=== PATIENT | female | born 1985 | race Caucasian/White ===

== ENCOUNTER 2016-12-09 15:52 | Outpatient (CLI) | payer BC ==
[2016-12-09 16:39] LABS: APPEARANCE,URINE CLEAR; BILIRUBIN,URINE NEGATIVE (NEGATIVE); GLUCOSE, URINE NEGATIVE (NEGATIVE); KETONES,URINE NEGATIVE (NEGATIVE); LEUKOCYTE ESTERASE,URINE NEGATIVE (NEGATIVE); NITRITE,URINE NEGATIVE (NEGATIVE); PROTEIN,URINE NEGATIVE (NEGATIVE); URINE SPECIFIC GRAVITY 1.003; UROBILINOGEN,URINE NEGATIVE mg/dL (<2.0)
[2016-12-09 16:56] LABS: URINE BARBITURATES SCREEN NEGATIVE; URINE METHADONE SCREEN NEGATIVE; URINE OPIATES LOW NEGATIVE; URINE PHENCYCLIDINE SCREEN NEGATIVE
--- NOTE | 2016-12-09 18:01 | L&D Current Admission ---
Current Admit Datetime Report Generated by CPN: 12/09/2016 18:00 ADMISSION INFORMATION Chief Complaint: Vaginal Bleeding (12/09/2016 16:40:Yarelis Glass RN)
--- NOTE | 2016-12-09 18:01 | L&D General Admission ---
General Admit Datetime Report Generated by CPN: 12/09/2016 18:00 INFORMATION Patient Age: 31 (12/09/2016 16:12:QS system process) EDC: 02/18/2017 00:00 (12/09/2016 16:14:Luz Maddox RN) : 1 (12/09/2016 16:14:Yarelis Glass RN) Para: 1 (12/09/2016 16:14:Yarelis Glass RN) Spontaneous Abortions: 0 (12/09/2016 16:14:Yarelis Glass RN) Induced Abortions: 0 (12/09/2016 16:14:Yarelis Glass RN) Livin (12/09/2016 16:14:Yarelis Glass RN) Baby, Number in Womb: 1 (12/09/2016 16:14:Yarelis Glass RN) CARE [facility] Probate [facility] (12/09/2016 16:14:Luz Maddox RN) Adequate Care: Yes (12/09/2016 16:14:Yarelis Glass RN) Prepregnancy Weight (lb): 162 (12/09/2016 16:14:Yarelis Glass RN) Prepregnancy Weight (kg): 73.6 (12/09/2016 16:14:QS system process) Height (in): 66 (12/09/2016 16:40:QS system process) ALLERGIES Medication Allergy: No (12/09/2016 16:14:Yarelis Glass RN) Medication Allergies: No Known Allergies (12/09/2016) (12/09/2016 16:39:QS system process) Latex Allergy: No Latex Allergies (12/09/2016 16:14:Yarelis Glass RN) Food Allergies: denies (12/09/2016 16:14:Yarelis Glass RN) Environmental Allergies: denies (12/09/2016 16:14:Yarelis Glass RN) COMMUNICATION Primary Language: Lithuanian (12/09/2016 16:14:Luz Maddox RN) Medical Tx Preferred Language: Lithuanian (12/09/2016 16:14:Luz Maddox RN) Communication Barrier(s): None (12/09/2016 16:14:Yarelis Glass RN) DEMOGRAPHICS Address: [address] [place] [id number] (12/09/2016 16:12:QS system process) Zipcode: [address] (12/09/2016 16:12:QS system process) Home (12/09/2016 16:12:QS system process) N: [id number] (12/09/2016 16:12:QS system process) Next of Kin Name: ABILIO STOVALL (12/09/2016 16:12:QS system process) Next of Kin (12/09/2016 16:12:QS system process) Next of Kin Relationship: SPO (12/09/2016 16:12:QS system process) Date of : 1985 (12/09/2016 16:12:QS system process) Marital Status: (12/09/2016 16:12:QS system process) Sex: Female (12/09/2016 16:12:QS system process) Race: (12/09/2016 16:12:QS system process) Ethnicity: Non- or (12/09/2016 16:12:QS system process) Mormon: None (12/09/2016 16:12:QS system process) DRUG AND ALCOHOL USE Alcohol: No (12/09/2016 16:14:Yarelis Glass RN) Cigarettes: Never Smoker. [id number] (12/09/2016 16:14:Yarelis Glass RN) Marijuana: No (12/09/2016 16:14:Yarelis Glass RN) Cocaine: No (12/09/2016 16:14:Yarelis Glass RN) Other Illicit Drugs: No (12/09/2016 16:14:Yarelis Glass RN) VACCINE HISTORY Influenza Vaccine: No (12/09/2016 16:14:Yarelis Glass RN) Pneumococcal Vaccine: No (12/09/2016 16:14:Yarelis Glass RN) Tdap Vaccine: Uncertain (12/09/2016 16:14:Yarelis Glass RN) Hepatitis B Vaccine: Uncertain (12/09/2016 16:14:Yarelis Glass RN) Feeding Preference: Formula (12/09/2016 16:14:Yarelis Glass RN) Benefit of Breast Feed Discussed: Yes (12/09/2016 16:14:Yarelis Glass RN) Circumcision: N/A (12/09/2016 16:14:Yarelis Glass RN) Tubal Ligation: No (12/09/2016 16:14:Yarelis Glass RN) Tubal Authorization Signed: N/A (12/09/2016 16:14:Yarelis Glass RN) Consent: N/A (12/09/2016 16:14:Yarelis Glass RN) Consent Signed: N/A (12/09/2016 16:14:Yarelis Glass RN) Support Person: Abilio Stovall (12/09/2016 16:14:Yarelis Glass RN) Support Person Relationship: (12/09/2016 16:14:Yarelis Glass RN) Cultural/Spritual Practice: No (12/09/2016 16:14:Yarelis Glass RN) Spir/Cult Dietary Needs: No (12/09/2016 16:14:Yarelis Glass RN) LIVING SITUATION/DISCHARGE PLAN Discharge [place] Person: Abilio Stovall (12/09/2016 16:14:Yarelis Glass RN) Person to Help after Discharge: Abilio Stovall (12/09/2016 16:14:Yarelis Glass RN)
--- NOTE | 2016-12-09 20:52 | L&D Discharge Summary ---
OB Discharge Summary Datetime Report Generated by CPN: 12/09/2016 20:51 DISCHARGE DIAGNOSIS Diagnosis/Symptoms: False Labor Diagnoses/Symptoms Other: not in labor; vaginal bleeding Number of Babies in Womb: 1 Parity: 1 DIET/ACTIVITY/RESTRICTIONS Diet: Regular Activity Restrictions: No Exercising; No Lifting; Minimize Walking; Minimize Stair Climbing; No Sexual Activity; Nothing in Vagina - [place], Tampons, Douche TEACHING/INSTRUCTIONS/REFERRALS Instructions Given To: patient and Instructions Understood: Patient Verbalized Understanding; Support Person Verbalized Understanding Referrals: None Educational Materials- Other: Pre-E and kick counts DISCHARGE INFORMATION Discharged AMA: No Physician Notified of Disch AMA: n/a Discharge Date/Time: 12/09/2016 18:50 Discharged To: Home Discharge Provider Name: Mueller Accompanied By: Discharge Method: Ambulatory Condition: Stable FOLLOW UP INFORMATION Follow Up With: [facility] Follow Up On: 1-2 Days GENERAL INSTR-CALL PROVIDER IF: Contractions: Contractions or cramps become more frequent than 8 in one hour or 4 in 20 minutes; Regular painful contractions every 5 minutes or less for one hour. Time your contractions from the beginning of one to the beginning of the next Pressure: Pressure in your vagina or lower abdomen that may feel like the baby is pushing down Period Like Cramps: Period-like cramps or low dull backache that may come and go Cramps/Diarrhea: Abdominal cramps that may be accompanied by diarrhea Gush of Fluid/Blood: Gush of fluid or blood from your vagina (it is normal to have spotting after vaginal exam or intercourse) Vaginal Discharge: Change in the type or amount of vaginal discharge Decreased Movement: Your baby is not moving as much as usual- 4 movements in 1 hour after drinking and resting on side Temperature: Temperature greater than 100.0(F) orally
--- NOTE | 2016-12-09 22:46 | L&D Flow Sheet ---
LD Flowsheet Datetime Report Generated by CPN: 12/09/2016 22:45 Datetime: 12/09/2016 18:42 Vital Signs Stage of : Antepartum (Yarelis Glass RN) NBP Sys/Dyana/Mean (mmHg): 138 (QS system process) : 87 (QS system process) : 107 (QS system process) Pulse: 87 (QS system process) Respirations: 14 (Yarelis Glass RN) Uterine Activity Monitor Mode: External (Yarelis [place], RN) Frequency (min): none (Yarelis [place], RN) Resting Tone (Palpate): Relaxed (Yarelis [place], RN) Contraction Comments: patient denies (Yarelis Maria [place], RN) Assessment A Monitor Mode: External US (Yarelis Maria [place]isa, RN) FHR Baseline Rate : 130 (Yarelis [place], RN) FHR Baseline Changes: No Baseline Change (Yarelis [place], RN) Variability: Moderate 6-25 bpm (Yarelis [place], RN) Accelerations: 15X15 (Yarelis [place], RN) Decelerations: None (Yarelis [place], RN) LaborFlag: Antepartum (QS system process) Datetime: 12/09/2016 18:39 Communication Communication: Provider Orders Received; Call/Page Placed to Provider (Yarelis Glass RN) Communication Comments: Dr. Mueller called and notified of patient's decreased vaginal bleeding and stable blood pressure 131/79 and 138/87. Patient advised on strict activity precautions,. She is to continue home blood pressure monitoring and promptly return for further vaginal bleeding, decreased movement, or signs of Pre-E. She will be discharged home to self care. She will follow-up in the office on Monday for a blood pressure check. Patient and spouse verbalized understanding and agreeable to plan of care. (Yarelis Glass RN) Datetime: 12/09/2016 18:32 Vital Signs Stage of : Antepartum (Yarelis Glass, RN) NBP Sys/Dyana/Mean (mmHg): 131 (QS system process) : 79 (QS system process) : 99 (QS system process) Pulse: 73 (QS system process) Respirations: 14 (Yarelis Glass, RN) LaborFlag: Antepartum (QS system process) Datetime: 12/09/2016 18:25 Vaginal Exam Comments: Patient reports minimal vaginal bleeding following walk. She states that bleeding is much less than it bynum been. (Yarelis Glass, RN) Datetime: 12/09/2016 17:47 Vital Signs Stage of : Antepartum (Yarelis Glass, RN) Patient Position/Activity: Patient off monitors walking 2nd floor accompanied by spouse per provider order. (Yarelis [place], RN) Datetime: 12/09/2016 17:38 Vital Signs Stage of : Antepartum (Yaerlis Maria Luisa, RN) Communication Communication: RN at Bedside; Provider at Bedside (Yarelis Glass RN) Provider Notified (Name): Dr. Mueller at bedside discussing normal ultrasound results. Patient will be monitored on unit for a few more hours and will walk 2nd floor accompanied by spouse to ensure bleeding does not continue or increase with normal activity. Discussed reasons to return promptly to hospital. All questions were answered and patient and family member are agreeabel to plan of care. (Yarelis lGass RN) Datetime: 12/09/2016 17:25 Uterine Activity Monitor Mode: External; Palpation (Yarelis Glass RN) Frequency (min): none (Yarelis Glass RN) Resting Tone (Palpate): Relaxed (Yarelis Glass RN) Contraction Comments: patient denies (Yarelis Glass RN) Assessment A Monitor Mode: External US (Yarelis [place]isa, RN) FHR Baseline Rate : 135 (Yarelis [place], RN) FHR Baseline Changes: No Baseline Change (Yarelis [place], RN) Variability: Moderate 6-25 bpm (Yarelis [place], RN) Accelerations: 15X15 (Yarelis [place], RN) Decelerations: None (Yarelis [place], RN) Datetime: 12/09/2016 17:24 Comments: Monitors removed while bedside ultrasound is being performed. (Yarelis Maria Luisa, RN) Datetime: 12/09/2016 17:20 Vital Signs Stage of : Antepartum (Yarelis Glass, RN) NBP Sys/Dyana/Mean (mmHg): 147 (QS system process) : 90 (QS system process) : 113 (QS system process) Pulse: 77 (QS system process) Respirations: 14 (Yarelis Glass, RN) LaborFlag: Antepartum (QS system process) Datetime: 12/09/2016 17:05 NBP Sys/Dyana/Mean (mmHg): 142 (QS system process) : 86 (QS system process) : 109 (QS system process) Pulse: 76 (QS system process) LaborFlag: Antepartum (QS system process) Datetime: 12/09/2016 17:00 Uterine Activity Monitor Mode: External; Palpation (Yarelis [place], RN) Frequency (min): none (Yarelis [place], RN) Resting Tone (Palpate): Relaxed (Yarelis [place], RN) Contraction Comments: no contractions noted or palpated. patient denies contractions (Yarelis Maria Luisa, RN) Assessment A Monitor Mode: External US (Yarelis [place], RN) FHR Baseline Rate : 135 (Yarelis Maria Luisa, RN) FHR Baseline Changes: No Baseline Change (Yarelis Maria Luisa, RN) Variability: Moderate 6-25 bpm (Yarelis [place], RN) Accelerations: 15X15 (Yarelis [place], RN) Decelerations: None (Yarelis Maria Luisa, RN) Comments: reports positive movement (Yarelis [place], RN) Datetime: 12/09/2016 16:50 Vital Signs Stage of : Antepartum (Yarelis [place], RN) NBP Sys/Dyana/Mean (mmHg): 152 (QS system process) : 90 (QS system process) : 115 (QS system process) Pulse: 70 (QS system process) Respirations: 12 (Yarelis [place], RN) LaborFlag: Antepartum (QS system process) Datetime: 12/09/2016 16:42 Vital Signs Stage of : Antepartum (Yarelis Glass RN) NBP Sys/Dyana/Mean (mmHg): 152 (QS system process) : 87 (QS system process) : 113 (QS system process) Pulse: 70 (QS system process) Respirations: 16 (Yarelis Glass RN) LaborFlag: Antepartum (QS system process) Datetime: 12/09/2016 16:40 Monitor Interventions for UA: [place] Adjusted (Yarelis Glass RN) Assessment A Monitor Mode: External US (Yarelis Glass RN) Monitor Interventions for FHR: Ultrasound Adjusted (Yarelis Glass RN) Variability: Moderate 6-25 bpm (Yarelis Maria Luisa, RN) Accelerations: 15X15 (Yarelis [place], RN) Decelerations: None (Yarelis [place], RN) Pain Pain Scale: 0 (Yarelis [place], RN) Pain Presence: None/Denies (Yarelis Maria Luisa, RN) Pain Type: N/A (Yarelis Maria Luisa, RN) Pain Relief Measures: Comfort Measures (Yarelis Maria Luisa, RN) Vaginal Exam Exam by: Dr. Mueller (Yarelis Maria Luisa, RN) Vaginal Bleeding: Scant (Yarelis [place], RN) Gaitan's Score Dilatation (cm): Closed (Yarelis Glass, KEON) Effacement: 0-30_ effaced (Yarelis Glass, KEON) Station: minus 3 (Yarelis Glass, RN) Maternal Assessment Level of Consciousness: Fully Conscious (Yarelis Glass, RN) DTR's/Clonus: DTRs 2+; No Clonus (Yarelis Glass, RN) Headache: Denies (Yarelis Glass, RN) Breath Sounds, Left: Clear and Equal (Yarelis Glass, RN) Breath Sounds, Right: Clear and Equal (Yarelis Glass, RN) Nausea/Vomiting: Denies (Yarelis Glass, RN) RUQ Epigastric Pain: Denies (Yarelis Glass, RN) Patient Care Oxygen Method: Room Air (Yarelis Glass, KEON) Patient Position/Activity: Left Tilt; Semi-Fowlers (Yarelis Glass, KEON) Comfort Measures: Breathing/Relaxation; Family Support (Yarelis Glass RN) I/O Interventions: Clear Liquids Given (Yarelis Glass RN) Provider Reviewed Strip: Yes (Annotations: Dr. Mueller on unit. Notified of patient OB status and chief complaint of vaginal bleeding. Orders received to obtain ultrasound for cervical length and placenta postion. ) (Yarelis Glass RN) Teaching Instructional Method: Verbal; Patient Instructed; Family/Support Person Instructed; Verbalized Understanding (Yarelis Glass RN) Plan of Care: Plan of Care Discussed (Yarelis Glass RN) Unit Routine: [place] to Room; Call Dee; Bed; Unit Personnel; Handwashing; Flu/Illness Precautions; Monitoring; Safety/Fall Risk Prevention; Bathroom Privileges (Yarelis Glass, KEON) Pain Management: Pain Scale/Goals; Comfort Measures (Yarelis Glass, KEON) Related: Common Discomforts of ; Maternal Physical Changes; Maternal Emotional Changes; Nutrition; Hydration; Activity and Rest (Yarelis Glass, KEON) LaborFlag: Antepartum (QS system process) Datetime: 12/09/2016 16:32 Medications Medication Comments: Patient self-administered Labetalol. Dr. Mueller aware (Yarelis [place], RN) Datetime: 12/09/2016 16:30 Vital Signs Stage of : Antepartum (Yarelis Glass, RN) NBP Sys/Dyana/Mean (mmHg): 172 (QS system process) : 100 (QS system process) : 127 (QS system process) Pulse: 74 (QS system process) Respirations: 18 (Yarelis Glass, RN) Communication Communication: RN at Bedside; Provider at Bedside (Yarelis Glass RN) Communication Comments: Dr. Mueller at bedside assessing patient and perfoming speculum exam to assess for vaginal bleeding (Yarelis Glass, KEON) LaborFlag: Antepartum (QS system process) Datetime: 12/09/2016 16:18 Vital Signs Stage of : Antepartum (Yarelis Glass, KEON)
--- NOTE | 2016-12-09 22:46 | L&D Discharge Summary ---
OB Discharge Summary Datetime Report Generated by CPN: 12/09/2016 22:45 DISCHARGE DIAGNOSIS Diagnosis/Symptoms: False Labor Diagnoses/Symptoms Other: not in labor; vaginal bleeding Gestation: 29.6 Number of Babies in Womb: 1 Parity: 1 DIET/ACTIVITY/RESTRICTIONS Diet: Regular Activity Restrictions: No Exercising; No Lifting; Minimize Walking; Minimize Stair Climbing; No Sexual Activity; Nothing in Vagina - [place], Tampons, Douche TEACHING/INSTRUCTIONS/REFERRALS Instructions Given To: patient and Instructions Understood: Patient Verbalized Understanding; Support Person Verbalized Understanding Referrals: None Educational Materials- Other: Pre-E and kick counts DISCHARGE INFORMATION Discharged AMA: No Physician Notified of Disch AMA: n/a Discharge Date/Time: 12/09/2016 18:50 Discharged To: Home Discharge Provider Name: Mueller Accompanied By: Discharge Method: Ambulatory Condition: Stable FOLLOW UP INFORMATION Follow Up With: [facility] Follow Up On: 1-2 Days GENERAL INSTR-CALL PROVIDER IF: Contractions: Contractions or cramps become more frequent than 8 in one hour or 4 in 20 minutes; Regular painful contractions every 5 minutes or less for one hour. Time your contractions from the beginning of one to the beginning of the next Pressure: Pressure in your vagina or lower abdomen that may feel like the baby is pushing down Period Like Cramps: Period-like cramps or low dull backache that may come and go Cramps/Diarrhea: Abdominal cramps that may be accompanied by diarrhea Gush of Fluid/Blood: Gush of fluid or blood from your vagina (it is normal to have spotting after vaginal exam or intercourse) Vaginal Discharge: Change in the type or amount of vaginal discharge Decreased Movement: Your baby is not moving as much as usual- 4 movements in 1 hour after drinking and resting on side Temperature: Temperature greater than 100.0(F) orally
--- NOTE | 2016-12-09 22:46 | L&D Current Admission ---
Current Admit Datetime Report Generated by CPN: 12/09/2016 22:45 ADMISSION INFORMATION Chief Complaint: Vaginal Bleeding (12/09/2016 16:40:Yarelis Glass RN)
--- NOTE | 2016-12-09 22:46 | L&D General Admission ---
General Admit Datetime Report Generated by CPN: 12/09/2016 22:45 INFORMATION Patient Age: 31 (12/09/2016 16:12:QS system process) EDC: 02/18/2017 00:00 (12/09/2016 16:14:Luz Maddox RN) : 1 (12/09/2016 16:14:Yarelis Glass RN) Para: 1 (12/09/2016 16:14:Yarelis Glass RN) Spontaneous Abortions: 0 (12/09/2016 16:14:Yarelis Glass RN) Induced Abortions: 0 (12/09/2016 16:14:Yarelis Glass RN) Livin (12/09/2016 16:14:Yarelis Glass RN) Baby, Number in Womb: 1 (12/09/2016 16:14:Yarelis Glass RN) CARE [facility] (12/09/2016 16:14:Luz Maddox RN) Adequate Care: Yes (12/09/2016 16:14:Yarelis Glass RN) Prepregnancy Weight (lb): 162 (12/09/2016 16:14:Yarelis Glass RN) Prepregnancy Weight (kg): 73.6 (12/09/2016 16:14:QS system process) Height (in): 66 (12/09/2016 16:40:QS system process) ALLERGIES Medication Allergy: No (12/09/2016 16:14:Yarelis Glass RN) Medication Allergies: No Known Allergies (12/09/2016) (12/09/2016 16:39:QS system process) Latex Allergy: No Latex Allergies (12/09/2016 16:14:Yarelis Glass RN) Food Allergies: denies (12/09/2016 16:14:Yarelis Glass RN) Environmental Allergies: denies (12/09/2016 16:14:Yarelis Glass RN) COMMUNICATION Primary Language: Belgian (12/09/2016 16:14:Luz Maddox RN) Medical Tx Preferred Language: Belgian (12/09/2016 16:14:Luz Maddox RN) Communication Barrier(s): None (12/09/2016 16:14:Yarelis Glass RN) DEMOGRAPHICS Address: [address] [place] [id number] (12/09/2016 16:12:QS system process) Zipcode: [address] (12/09/2016 16:12:QS system process) Home (12/09/2016 16:12:QS system process) N: [id number] (12/09/2016 16:12:QS system process) Next of Kin Name: ABILIO STOVALL (12/09/2016 16:12:QS system process) Next of Kin (12/09/2016 16:12:QS system process) Next of Kin Relationship: SPO (12/09/2016 16:12:QS system process) Date of : 1985 (12/09/2016 16:12:QS system process) Marital Status: (12/09/2016 16:12:QS system process) Sex: Female (12/09/2016 16:12:QS system process) Race: (12/09/2016 16:12:QS system process) Ethnicity: Non- or (12/09/2016 16:12:QS system process) Temple: None (12/09/2016 16:12:QS system process) DRUG AND ALCOHOL USE Alcohol: No (12/09/2016 16:14:Yarelis Glass RN) Cigarettes: Never Smoker. [id number] (12/09/2016 16:14:Yarelis Glass RN) Marijuana: No (12/09/2016 16:14:Yarelis Glass RN) Cocaine: No (12/09/2016 16:14:aYrelis Glass RN) Other Illicit Drugs: No (12/09/2016 16:14:Yarelis Glass RN) VACCINE HISTORY Influenza Vaccine: No (12/09/2016 16:14:Yarelis Glass RN) Pneumococcal Vaccine: No (12/09/2016 16:14:Yarelis Glass RN) Tdap Vaccine: Uncertain (12/09/2016 16:14:Yarelis Glass RN) Hepatitis B Vaccine: Uncertain (12/09/2016 16:14:Yarelis Glass RN) Feeding Preference: Formula (12/09/2016 16:14:Yarelis Glass RN) Benefit of Breast Feed Discussed: Yes (12/09/2016 16:14:Yarelis Glass RN) Circumcision: N/A (12/09/2016 16:14:Yarelis Glass RN) Tubal Ligation: No (12/09/2016 16:14:Yarelis Glass RN) Tubal Authorization Signed: N/A (12/09/2016 16:14:Yarelis Glass RN) Consent: N/A (12/09/2016 16:14:Yarelis Glass RN) Consent Signed: N/A (12/09/2016 16:14:Yarleis Glass RN) Support Person: Abilio Stovall (12/09/2016 16:14:Yarelis Glass RN) Support Person Relationship: (12/09/2016 16:14:Yarelis Glass RN) Cultural/Spritual Practice: No (12/09/2016 16:14:Yarelis Glass RN) Spir/Cult Dietary Needs: No (12/09/2016 16:14:Yarelis Glass RN) LIVING SITUATION/DISCHARGE PLAN Discharge Law Professor Person: Abilio Stovall (12/09/2016 16:14:Yarelis Glass RN) Person to Help after Discharge: Abilio Stovall (12/09/2016 16:14:Yarelis Glass RN)
--- NOTE | 2016-12-10 04:46 | L&D Current Admission ---
Current Admit Datetime Report Generated by CPN: 12/10/2016 04:45 ADMISSION INFORMATION Chief Complaint: Vaginal Bleeding (12/09/2016 16:40:Yarelis Glass RN)
--- NOTE | 2016-12-10 04:46 | L&D Flow Sheet ---
LD Flowsheet Datetime Report Generated by CPN: 12/10/2016 04:45 Datetime: 12/09/2016 18:42 Stage of : Antepartum (Yarelis Glass RN) NBP Sys/Dyana/Mean (mmHg): 138 (QS system process) : 87 (QS system process) : 107 (QS system process) Pulse: 87 (QS system process) Respirations: 14 (Yarelis Glass RN) Monitor Mode: External (Yarelis Glass RN) Frequency (min): none (Yarelis Glass RN) Resting Tone (Palpate): Relaxed (Yarelis Glass RN) Contraction Comments: patient denies (Yarelis Glass RN) Monitor Mode: External US (Yarelis Glass RN) FHR Baseline Rate : 130 (Yarelis Glass RN) FHR Baseline Changes: No Baseline Change (Yarelis Glass RN) Variability: Moderate 6-25 bpm (Yarelis Glass RN) Accelerations: 15X15 (Yarelis Glass RN) Decelerations: None (Yarelis Glass RN) LaborFlag: Antepartum (QS system process) Datetime: 12/09/2016 18:39 Communication: Provider Orders Received; Call/Page Placed to Provider (Yarelis Glass RN) Communication Comments: Dr. Mueller called and notified of patient's decreased vaginal bleeding and stable blood pressure 131/79 and 138/87. Patient advised on strict activity precautions,. She is to continue home blood pressure monitoring and promptly return for further vaginal bleeding, decreased movement, or signs of Pre-E. She will be discharged home to self care. She will follow-up in the office on Monday for a blood pressure check. Patient and spouse verbalized understanding and agreeable to plan of care. (Yarelis Glass RN) Datetime: 12/09/2016 18:32 Stage of : Antepartum (Yarelis Glass RN) NBP Sys/Dyana/Mean (mmHg): 131 (QS system process) : 79 (QS system process) : 99 (QS system process) Pulse: 73 (QS system process) Respirations: 14 (Yarelis Glass RN) LaborFlag: Antepartum (QS system process) Datetime: 12/09/2016 18:25 Vaginal Exam Comments: Patient reports minimal vaginal bleeding following walk. She states that bleeding is much less than it bynum been. (Yarelis Mountrail, RN) Datetime: 12/09/2016 17:47 Stage of : Antepartum (Yarelis Mountrail, RN) Patient Position/Activity: Patient off monitors walking 2nd floor accompanied by spouse per provider order. (Yarelis Mountrail, RN) Datetime: 12/09/2016 17:38 Stage of : Antepartum (Yarelis Maria Luisa, RN) Communication: RN at Bedside; Provider at Bedside (Yarelis Glass RN) Provider Notified (Name): Dr. Mueller at bedside discussing normal ultrasound results. Patient will be monitored on unit for a few more hours and will walk 2nd floor accompanied by spouse to ensure bleeding does not continue or increase with normal activity. Discussed reasons to return promptly to hospital. All questions were answered and patient and family member are agreeabel to plan of care. (Yraelis Glass RN) Datetime: 12/09/2016 17:25 Monitor Mode: External; Palpation (Yarelis Glass RN) Frequency (min): none (Yarelis Glass RN) Resting Tone (Palpate): Relaxed (Yarelis Glass RN) Contraction Comments: patient denies (Yarelis Glass, KEON) Monitor Mode: External US (Yarelis Glass RN) FHR Baseline Rate : 135 (Yarelis Glass RN) FHR Baseline Changes: No Baseline Change (Yarelis Glass RN) Variability: Moderate 6-25 bpm (Yarelis Glass RN) Accelerations: 15X15 (Yarelis Glass RN) Decelerations: None (Yarelis Glass RN) Datetime: 12/09/2016 17:24 Comments: Monitors removed while bedside ultrasound is being performed. (Yarelis Glass, RN) Datetime: 12/09/2016 17:20 Stage of : Antepartum (Yarelis Glass, RN) NBP Sys/Dyana/Mean (mmHg): 147 (QS system process) : 90 (QS system process) : 113 (QS system process) Pulse: 77 (QS system process) Respirations: 14 (Yarelis Glass, RN) LaborFlag: Antepartum (QS system process) Datetime: 12/09/2016 17:05 NBP Sys/Dyana/Mean (mmHg): 142 (QS system process) : 86 (QS system process) : 109 (QS system process) Pulse: 76 (QS system process) LaborFlag: Antepartum (QS system process) Datetime: 12/09/2016 17:00 Monitor Mode: External; Palpation (Yarelis Glass, KEON) Frequency (min): none (Yarelis Glass, RN) Resting Tone (Palpate): Relaxed (Yarelis Glass, RN) Contraction Comments: no contractions noted or palpated. patient denies contractions (Yarelis Glass, RN) Monitor Mode: External US (Yarelis Glass, RN) FHR Baseline Rate : 135 (Yarelis Glass, RN) FHR Baseline Changes: No Baseline Change (Yarelis Glass, RN) Variability: Moderate 6-25 bpm (Yarelis Glass, RN) Accelerations: 15X15 (Yarelis Glass, RN) Decelerations: None (Yarelis Glass, RN) Comments: reports positive movement (Yarelis Glass, RN) Datetime: 12/09/2016 16:50 Stage of : Antepartum (Yarelis Glass, KEON) NBP Sys/Dyana/Mean (mmHg): 152 (QS system process) : 90 (QS system process) : 115 (QS system process) Pulse: 70 (QS system process) Respirations: 12 (Yarelis Glass, RN) LaborFlag: Antepartum (QS system process)
--- NOTE | 2016-12-10 04:46 | L&D General Admission ---
General Admit Datetime Report Generated by CPN: 12/10/2016 04:45 INFORMATION Patient Age: 31 (12/09/2016 16:12:QS system process) EDC: 02/18/2017 00:00 (12/09/2016 16:14:Luz Maddox RN) : 1 (12/09/2016 16:14:Yarelis Glass RN) Para: 1 (12/09/2016 16:14:Yarelis Glass RN) Spontaneous Abortions: 0 (12/09/2016 16:14:Yaerlis Glass RN) Induced Abortions: 0 (12/09/2016 16:14:Yarelis Glass RN) Livin (12/09/2016 16:14:Yarelis Glass RN) Baby, Number in Womb: 1 (12/09/2016 16:14:Yarelis Glass RN) CARE Primary Die Engraver: [facility] (12/09/2016 16:14:Luz Maddox RN) Adequate Care: Yes (12/09/2016 16:14:Yarelis Glass RN) Prepregnancy Weight (lb): 162 (12/09/2016 16:14:Yarelis Glass RN) Prepregnancy Weight (kg): 73.6 (12/09/2016 16:14:QS system process) Height (in): 66 (12/09/2016 16:40:QS system process) ALLERGIES Medication Allergy: No (12/09/2016 16:14:Yarelis Glass RN) Medication Allergies: No Known Allergies (12/09/2016) (12/09/2016 16:39:QS system process) Latex Allergy: No Latex Allergies (12/09/2016 16:14:Yarelis Glass RN) Food Allergies: denies (12/09/2016 16:14:Yarelis Glass RN) Environmental Allergies: denies (12/09/2016 16:14:Yarelis Glass RN) COMMUNICATION Primary Language: Yemeni (12/09/2016 16:14:Luz Maddox RN) Medical Tx Preferred Language: Yemeni (12/09/2016 16:14:Luz Maddox RN) Communication Barrier(s): None (12/09/2016 16:14:Yarelis Glass RN) DEMOGRAPHICS Address: [address] [place] [id number] (12/09/2016 16:12:QS system process) Zipcode: [id number] (12/09/2016 16:12:QS system process) Home (12/09/2016 16:12:QS system process) N: [phone] (12/09/2016 16:12:QS system process) Next of Kin Name: ABILIO STOVALL (12/09/2016 16:12:QS system process) Next of Kin (12/09/2016 16:12:QS system process) Next of Kin Relationship: SPO (12/09/2016 16:12:QS system process) Date of : 1985 (12/09/2016 16:12:QS system process) Marital Status: (12/09/2016 16:12:QS system process) Sex: Female (12/09/2016 16:12:QS system process) Race: (12/09/2016 16:12:QS system process) Ethnicity: Non- or (12/09/2016 16:12:QS system process) Mosque: None (12/09/2016 16:12:QS system process) DRUG AND ALCOHOL USE Alcohol: No (12/09/2016 16:14:Yarelis Glass RN) Cigarettes: Never Smoker. [id number] (12/09/2016 16:14:Yarelis Glass RN) Marijuana: No (12/09/2016 16:14:Yarelis Glass RN) Cocaine: No (12/09/2016 16:14:Yarelis Glass RN) Other Illicit Drugs: No (12/09/2016 16:14:Yarelis Glass RN) VACCINE HISTORY Influenza Vaccine: No (12/09/2016 16:14:Yarelis Glass RN) Pneumococcal Vaccine: No (12/09/2016 16:14:Yarelis Glass RN) Tdap Vaccine: Uncertain (12/09/2016 16:14:Yarelis Glass RN) Hepatitis B Vaccine: Uncertain (12/09/2016 16:14:Yarelis Glass RN) Feeding Preference: Formula (12/09/2016 16:14:Yarelis Glass RN) Benefit of Breast Feed Discussed: Yes (12/09/2016 16:14:Yarelis Glass RN) Circumcision: N/A (12/09/2016 16:14:Yarelis Glass RN) Tubal Ligation: No (12/09/2016 16:14:Yarelis Glass RN) Tubal Authorization Signed: N/A (12/09/2016 16:14:Yarelis Glass RN) Consent: N/A (12/09/2016 16:14:Yarelis Glass RN) Consent Signed: N/A (12/09/2016 16:14:Yarelis Glass RN) Support Person: Abilio Stovall (12/09/2016 16:14:Yarelis Glass RN) Support Person Relationship: (12/09/2016 16:14:Yarelis Glass RN) Cultural/Spritual Practice: No (12/09/2016 16:14:Yarelis Glass RN) Spir/Cult Dietary Needs: No (12/09/2016 16:14:Yarelis Glass RN) LIVING SITUATION/DISCHARGE PLAN Discharge Bench Mechanic Person: Abilio Stovall (12/09/2016 16:14:Yarelis Glass RN) Person to Help after Discharge: Abilio Stovall (12/09/2016 16:14:Yarelis Glass RN)
--- NOTE | 2016-12-10 10:45 | L&D Current Admission ---
Current Admit Datetime Report Generated by CPN: 12/10/2016 10:45 ADMISSION INFORMATION Chief Complaint: Vaginal Bleeding (12/09/2016 16:40:Yarelis Glass RN)
--- NOTE | 2016-12-10 10:45 | L&D General Admission ---
General Admit Datetime Report Generated by CPN: 12/10/2016 10:45 INFORMATION Patient Age: 31 (12/09/2016 16:12:QS system process) EDC: 02/18/2017 00:00 (12/09/2016 16:14:Luz Maddox RN) : 1 (12/09/2016 16:14:Yarelis Glass RN) Para: 1 (12/09/2016 16:14:Yarelis Glass RN) Spontaneous Abortions: 0 (12/09/2016 16:14:Yarelis Glass RN) Induced Abortions: 0 (12/09/2016 16:14:Yarelis Glass RN) Livin (12/09/2016 16:14:Yarelis Glass RN) Baby, Number in Womb: 1 (12/09/2016 16:14:Yarelis Glass RN) CARE Primary Business Systems Lead: [employer] (12/09/2016 16:14:Luz Maddox RN) Adequate Care: Yes (12/09/2016 16:14:Yarelis Glass RN) Prepregnancy Weight (lb): 162 (12/09/2016 16:14:Yarelis Glass RN) Prepregnancy Weight (kg): 73.6 (12/09/2016 16:14:QS system process) Height (in): 66 (12/09/2016 16:40:QS system process) ALLERGIES Medication Allergy: No (12/09/2016 16:14:Yarelis Glass RN) Medication Allergies: No Known Allergies (12/09/2016) (12/09/2016 16:39:QS system process) Latex Allergy: No Latex Allergies (12/09/2016 16:14:Yarelis Glass RN) Food Allergies: denies (12/09/2016 16:14:Yarelis Glass RN) Environmental Allergies: denies (12/09/2016 16:14:Yarelis Galss RN) COMMUNICATION Primary Language: Mauritanian (12/09/2016 16:14:Luz Maddox RN) Medical Tx Preferred Language: Mauritanian (12/09/2016 16:14:Luz Maddox RN) Communication Barrier(s): None (12/09/2016 16:14:Yarelis Glass RN) DEMOGRAPHICS Address: [address] [place] [id number] (12/09/2016 16:12:QS system process) Zipcode: [phone] (12/09/2016 16:12:QS system process) Home (12/09/2016 16:12:QS system process) N: [phone] (12/09/2016 16:12:QS system process) Next of Kin Name: ABILIO STOVALL (12/09/2016 16:12:QS system process) Next of Kin (12/09/2016 16:12:QS system process) Next of Kin Relationship: SPO (12/09/2016 16:12:QS system process) Date of : 1985 (12/09/2016 16:12:QS system process) Marital Status: (12/09/2016 16:12:QS system process) Sex: Female (12/09/2016 16:12:QS system process) Race: (12/09/2016 16:12:QS system process) Ethnicity: Non- or (12/09/2016 16:12:QS system process) Lutheran: None (12/09/2016 16:12:QS system process) DRUG AND ALCOHOL USE Alcohol: No (12/09/2016 16:14:Yarelis Glass RN) Cigarettes: Never Smoker. [id number] (12/09/2016 16:14:Yarelis Glass RN) Marijuana: No (12/09/2016 16:14:Yarelis Glass RN) Cocaine: No (12/09/2016 16:14:Yarelis Glass RN) Other Illicit Drugs: No (12/09/2016 16:14:Yarelis Glass RN) VACCINE HISTORY Influenza Vaccine: No (12/09/2016 16:14:Yarelis Glass RN) Pneumococcal Vaccine: No (12/09/2016 16:14:Yarelis Glass RN) Tdap Vaccine: Uncertain (12/09/2016 16:14:Yarelis Glass RN) Hepatitis B Vaccine: Uncertain (12/09/2016 16:14:Yarelis Glass RN) Feeding Preference: Formula (12/09/2016 16:14:Yarelis Glass RN) Benefit of Breast Feed Discussed: Yes (12/09/2016 16:14:Yarelis Glass RN) Circumcision: N/A (12/09/2016 16:14:Yarelis Glass RN) Tubal Ligation: No (12/09/2016 16:14:Yarelis Glass RN) Tubal Authorization Signed: N/A (12/09/2016 16:14:Yarelis Glass RN) Consent: N/A (12/09/2016 16:14:Yarelis Glass RN) Consent Signed: N/A (12/09/2016 16:14:Yarelis Glass RN) Support Person: Abilio Stovall (12/09/2016 16:14:Yarelis Glass RN) Support Person Relationship: (12/09/2016 16:14:Yarelis Glass RN) Cultural/Spritual Practice: No (12/09/2016 16:14:Yarelis Glass RN) Spir/Cult Dietary Needs: No (12/09/2016 16:14:Yarelis Glass RN) LIVING SITUATION/DISCHARGE PLAN Discharge Rotoprinter Person: Abilio Stovall (12/09/2016 16:14:Yarelis Glass RN) Person to Help after Discharge: Abilio Stovall (12/09/2016 16:14:Yarelis Glass RN)
--- NOTE | 2016-12-10 10:45 | L&D Admission Assessment ---
LD ADM ASMT Datetime Report Generated by CPN: 12/10/2016 10:45 PATIENT ASSESSMENT Assessment Type: Triage (12/09/2016 16:40:Yarelis Hawthorneard, RN) WEIGHT Weight (lb): 191 (12/09/2016 16:40:QS system process) Weight (kg): 86.8 (12/09/2016 16:40:QS system process) Total Wt Gain (lb): 29 (12/09/2016 16:40:QS system process) Wt Gain (kg): 13.4 (12/09/2016 16:40:QS system process) PAIN Pain Scale: 0 (12/09/2016 16:40:Yarelis Glass RN) Pain Presence: None/Denies (12/09/2016 16:40:Yarelis Glass RN) Pain Type: N/A (12/09/2016 16:40:Yarelis Glass RN) CONTRACTIONS Frequency (min): none (12/09/2016 18:42:Yarelis Glass RN) Frequency (min): none (12/09/2016 17:25:Yarelis Glass RN) Frequency (min): none (12/09/2016 17:00:Yarelis Glass RN) Resting Tone [place]: Relaxed (12/09/2016 18:42:Yarelis Glass RN) Resting Tone [place]: Relaxed (12/09/2016 17:25:Yarelis Glass RN) Resting Tone [place]: Relaxed (12/09/2016 17:00:Yarelis Glass RN) Contraction Comments: patient denies (12/09/2016 18:42:Yarelis Glass RN) Contraction Comments: patient denies (12/09/2016 17:25:Yarelis Glass RN) Contraction Comments: no contractions noted or palpated. patient denies contractions (12/09/2016 17:00:Yarelis Glass RN) VAGINAL EXAM Speculum Results: closed cervix. scant mucousy blood in cervical vault (12/09/2016 16:40:Yarelis Glass RN) BARNHART'S SCORE Barnhart's Score Dilatation (cm): Closed (12/09/2016 16:40:Yarelis Glass RN) Barnhart's Score Effacement (%): 0-30_ effaced (12/09/2016 16:40:Yarelis Glass RN) Barnhart's Score Station: minus 3 (12/09/2016 16:40:Yarelis Glass RN) NEURO Level of Consciousness: Fully Conscious (12/09/2016 16:40:Yarelis Glass RN) DTR's/Clonus: DTRs 2+; No Clonus (12/09/2016 16:40:Yarelis Glass RN) Headache: Denies (12/09/2016 16:40:Yarelis Glass RN) Dizziness: No (12/09/2016 16:40:Yarelis Glass RN) Blurred Vision: No (12/09/2016 16:40:Yarelis Glass RN) Extremity Numbness/Tingling : None (12/09/2016 16:40:Yarelis Glass RN) Extremity Movement: Full Range of Motion (12/09/2016 16:40:Yraelis Glass RN) CARDIOVASCULAR Heart Rhythm: Regular (12/09/2016 16:40:Yarelis Glass RN) Nailbeds: [place] (12/09/2016 16:40:Yarelis Glass RN) Capillary Refill: Less than 3 Seconds (12/09/2016 16:40:Yarelis Glass RN) Lower Extremities Edema: Bilateral Lower Extremities (12/09/2016 16:40:Yarelis Glass RN) Lower Extremities Edema Degree: 1+ (12/09/2016 16:40:Yarelis Glass RN) Upper Extremities Edema: None (12/09/2016 16:40:Yarelis Glass RN) Upper Extremities Edema Degree: None (12/09/2016 16:40:Yarelis Glass RN) Facial Edema: None (12/09/2016 16:40:Yarelis Glass RN) Grayson's Sign Left Leg: Negative (12/09/2016 16:40:Yarelis Glass RN) Grayson's Sign Right Leg: Negative (12/09/2016 16:40:Yarelis Glass RN) DVT RISK ASSESSMENT DVT Risk Age: Age less than 41 years (12/09/2016 16:40:Yarelis Glass RN) DVT Risk BMI: BMI<31 (12/09/2016 16:40:Yarelis Glass RN) DVT Risk Surgery: None Applicable (12/09/2016 16:40:Yarelis Glass RN) DVT Risk Other: Women Only- or (<1 month) (12/09/2016 16:40:Yarelis Glass RN) DVT Risk Total: 1 (12/09/2016 16:40:QS system process) DVT Risk Text: Low Risk (<10%) No specific measures, early ambulation (12/09/2016 16:40:QS system process) RESPIRATORY Respiratory Effort: Unlabored; Regular Rhythm (12/09/2016 16:40:Yarelis Glass, KEON) Breath Sounds, Left: Clear and Equal (12/09/2016 16:40:Yarelis Glass, KEON) Breath Sounds, Right: Clear and Equal (12/09/2016 16:40:Yarelis Glass, KEON) Cough Productivity: None (12/09/2016 16:40:Yarelis Glass, KEON) GASTROINTESTINAL Nausea/Vomiting: Denies (12/09/2016 16:40:Yarelis Glass RN) Bowel Sounds: Normoactive; All Quadrants (12/09/2016 16:40:Yarelis Glass RN) RUQ Epigastric Pain: Denies (12/09/2016 16:40:Yarelis Glass, KEON) Bowel Patterns: Soft, Formed Stool (12/09/2016 16:40:Yarelis Glass RN) Hemorrhoids: None (12/09/2016 16:40:Yarelis Glass, KEON) Diet Type: Regular diet (12/09/2016 16:40:Yarelis Glass RN) Last Meal: 12/09/2016 14:00 (12/09/2016 16:40:Yarelis Glass RN) GENITOURINARY Bladder: Nondistended (12/09/2016 16:40:Yarelis Glass, KEON) Frequency of Urination: No (12/09/2016 16:40:Yarelis Glass, KEON) Urination Burning: No (12/09/2016 16:40:Yarelis Glass, RN) CVA Tenderness: No (12/09/2016 16:40:Yarelis Glass, RN) Vaginal Bleeding: Scant (12/09/2016 16:40:Yarelis Glass, RN) Vaginal Discharge Amount: None (12/09/2016 16:40:Yarelis Glass, RN) Vaginal Discharge Color: Red (12/09/2016 16:40:Yarelis Glass, RN) Vaginal Discharge Odor: Non-Odorous (12/09/2016 16:40:Yarelis Glass, RN) Vaginal Discharge Character: Thin (12/09/2016 16:40:Yarelis Glass, RN) INTEGUMENTARY Skin Color: Normal for Race (12/09/2016 16:40:Yarelis Glass, KEON) Skin Temperature: Warm (12/09/2016 16:40:Yarelis Glass, RN) Skin Moisture: Dry (12/09/2016 16:40:Yarelis Glass, RN) COLLEEN SKIN ASSESSMENT Colleen Scale Sensory Perception: No Impairment- Responds to verbal commands. Has no sensory deficit which would limit ability to feel or voice pain or discomfort (12/09/2016 16:40:Yarelis Glass RN) Colleen Scale Moisture: Rarely Moist- Skin is usually dry. Linen only requires changing at routine intervals (12/09/2016 16:40:Yarelis Glass RN) Colleen Scale Activity: Walks Frequently- Walks outside the room at least twice a day and inside room at least every 2 hours during the day. (12/09/2016 16:40:Yarelis Glass RN) Colleen Scale Mobility: No Limitations- Makes major and frequent changes in position without assistance (12/09/2016 16:40:Yarelis Glass RN) Colleen Scale Nutrition: Excellent- Eats most of every meal. Never refuses a meal. Usually eats a total of 4 or more servings of meat and dairy products. Occasionally eats between meals. Does not require supplementation (12/09/2016 16:40:Yarelis Glass RN) Colleen Scale Friction and Shear: No Apparent Problem- Moves in bed and in chair independently and has sufficient muscle strength to lift up completely during move. Maintains good position in bed or chair at all times (12/09/2016 16:40:Yarelis Glass RN) Colleen Scale Total: 23 (12/09/2016 16:40:QS system process) Colleen Scale Risk: No Risk of Pressure Ulcer Noted at this Time (12/09/2016 16:40:QS system process) SUPPORT Family Support: Significant Other supportive, at bedside frequently; Family supportive (12/09/2016 16:40:Yarelis Glass, KEON) Emotional State: Calm/Relaxed (12/09/2016 16:40:Yarelis Glass, KEON) SAFETY Call Dee Within Reach: Yes (12/09/2016 16:40:Yarelis Glass, KEON) Side Rails Up: Yes (12/09/2016 16:40:Yarelis Glass, KEON) Bed Wheels Locked: Yes (12/09/2016 16:40:Yarelis Glass, KEON) Arm Bands Present: Yes (12/09/2016 16:40:Yarelis Glass, KEON) Isolation: [place] (12/09/2016 16:40:Yarelis Glass, KEON) FALL SCREEN Fall Risk History of Falling: (0) No (12/09/2016 16:40:Yarelis Glass RN) Fall Risk Secondary Diagnosis: (0) No (12/09/2016 16:40:Yarelis Glass RN) Fall Risk Ambulatory Aid: (0) None/Bedrest/Wheelchair/Nurse Assist (12/09/2016 16:40:Yarelis Glass RN) Fall Risk IV Therapy: (0) No (12/09/2016 16:40:Yarelis Glass RN) Fall Risk Gait: (0) Normal/Bedrest/Immobile (12/09/2016 16:40:Yarelis Glass RN) Fall Risk Mental Status: (0) Oriented to Own Ability (12/09/2016 16:40:Yarelis Glass RN) Fall Risk Score: 0 (12/09/2016 16:40:QS system process) Fall Risk Score Definition: No Risk: No action required (12/09/2016 16:40:QS system process) RECENT TRAVEL/INFECTIOUS DISEASE Recent Exp Communicable Disease: No (12/09/2016 16:40:Yarelis Glass RN) Cough or Fever: No (12/09/2016 16:40:Yarelis Glass RN) Foreign Travel Past 10 Days: No (12/09/2016 16:40:Yarelis Glass RN) Open Wounds or Sores: No (12/09/2016 16:40:Yarelis Glass RN) Prior Antibiotic Resistance Tx: No (12/09/2016 16:40:Yarelis Glass RN) Cultures Obtained: Not Applicable (12/09/2016 16:40:Yarelis Glass RN) Isolation Initiated: No (12/09/2016 16:40:Yarelis Glass RN) Pt/Family Education: Not Applicable (12/09/2016 16:40:Yarelis Glass RN) BABY A FHR Baseline Rate (bpm) Baby A: 130 (12/09/2016 18:42:Yarelis Glass RN) FHR Baseline Rate (bpm) Baby A: 135 (12/09/2016 17:25:Yarelis Glass RN) FHR Baseline Rate (bpm) Baby A: 135 (12/09/2016 17:00:Yarelis Glass RN) Variability Baby A: Moderate 6-25 bpm (12/09/2016 18:42:Yarelis lGass RN) Variability Baby A: Moderate 6-25 bpm (12/09/2016 17:25:Yarelis Glass RN) Variability Baby A: Moderate 6-25 bpm (12/09/2016 17:00:Yarelis Glass RN) Variability Baby A: Moderate 6-25 bpm (12/09/2016 16:40:Yarelis Glass RN) Accelerations Baby A: 15X15 (12/09/2016 18:42:Yarelis Glass RN) Accelerations Baby A: 15X15 (12/09/2016 17:25:Yarelis Glass RN) Accelerations Baby A: 15X15 (12/09/2016 17:00:Yarelis Glass RN) Accelerations Baby A: 15X15 (12/09/2016 16:40:Yarelis Glass RN) Decelerations Baby A: None (12/09/2016 18:42:Yarelis Glass RN) Decelerations Baby A: None (12/09/2016 17:25:Yarelis Glass RN) Decelerations Baby A: None (12/09/2016 17:00:Yarelis Glass RN) Decelerations Baby A: None (12/09/2016 16:40:Yarelis Glass RN)
--- NOTE | 2016-12-10 10:46 | Antepartum Discharge Summary ---
Antepartum DC Datetime Report Generated by CPN: 12/10/2016 10:45 DIET/ACTIVITY/RESTRICTIONS Diet: Regular (12/09/2016 18:50:Yarelis Glass RN) Activity Restrictions: No Exercising; No Lifting; Minimize Walking; Minimize Stair Climbing; No Sexual Activity; Nothing in Vagina - [employer], Tampons, Douche (12/09/2016 18:50:Yarelis Glass RN) TEACHING/INSTRUCTIONS/REFERRALS Instructions Given To: patient and (12/09/2016 18:50:Yarelis Glass RN) Instructions Understood: Patient Verbalized Understanding; Support Person Verbalized Understanding (12/09/2016 18:50:Yarelis Glass RN) Referrals: None (12/09/2016 18:50:Yarelis Glass RN) Educational Materials- Other: Pre-E and kick counts (12/09/2016 18:50:Yarelis Glass RN) DISCHARGE INFORMATION Discharged AMA: No (12/09/2016 18:50:Yarelis Glass RN) Physician Notified of Disch AMA: n/a (12/09/2016 18:50:Yarelis Glass RN) Discharge Date/Time: 12/09/2016 18:50 (12/09/2016 18:50:Yarelis Glass RN) Discharged To: Home (12/09/2016 18:50:Yarelis Glass RN) Discharge Provider Name: Dr. Mueller (12/09/2016 18:50:Yarelis Glass RN) Accompanied By: (12/09/2016 18:50:Yarelis Glass RN) Discharge Method: Ambulatory (12/09/2016 18:50:Yarelis Glass RN) Condition: Stable (12/09/2016 18:50:Yarelis Glass RN) FOLLOW UP INFORMATION Follow Up With: [facility] (12/09/2016 18:50:Yarelis Glass RN) Follow Up On: 1-2 Days (12/09/2016 18:50:Yarelis Glass RN) GENERAL INSTR-CALL PROVIDER IF: Contractions: Contractions or cramps become more frequent than 8 in one hour or 4 in 20 minutes; Regular painful contractions every 5 minutes or less for one hour. Time your contractions from the beginning of one to the beginning of the next (12/09/2016 18:50:Yarelis Glass RN) Pressure: Pressure in your vagina or lower abdomen that may feel like the baby is pushing down (12/09/2016 18:50:Yarelis Glass RN) Period Like Cramps: Period-like cramps or low dull backache that may come and go (12/09/2016 18:50:Yarelis Glass RN) Cramps/Diarrhea: Abdominal cramps that may be accompanied by diarrhea (12/09/2016 18:50:Yarelis Glass RN) Gush of Fluid/Blood: Gush of fluid or blood from your vagina (it is normal to have spotting after vaginal exam or intercourse) (12/09/2016 18:50:Yarelis Glass RN) Vaginal Discharge: Change in the type or amount of vaginal discharge (12/09/2016 18:50:Yarelis Glass RN) Decreased Movement: Your baby is not moving as much as usual- 4 movements in 1 hour after drinking and resting on side (12/09/2016 18:50:Yarelis Glass RN) Temperature: Temperature greater than 100.0(F) orally (12/09/2016 18:50:Yarelis Glass RN) Hypertension Signs/Symptoms: Severe headache which is not relieved 30 minutes after taking Tylenol(Acetaminophen); Blurry vision or spots before your eyes; Severe heartburn or pain on the upper right side of your abdomen that is not relieved by an antacid; Increased swelling in your face, hands or feet (12/09/2016 18:50:Yarelis Glass RN) Urinary Output: Decreased urinary output or dark colored urine (12/09/2016 18:50:Yarelis Glass RN)
--- NOTE | 2016-12-10 16:45 | L&D Current Admission ---
Current Admit Datetime Report Generated by CPN: 12/10/2016 16:45 ADMISSION INFORMATION Chief Complaint: Vaginal Bleeding (12/09/2016 16:40:Yarelis Glass RN)
--- NOTE | 2016-12-10 16:45 | L&D General Admission ---
General Admit Datetime Report Generated by CPN: 12/10/2016 16:45 INFORMATION Patient Age: 31 (12/09/2016 16:12:QS system process) EDC: 02/18/2017 00:00 (12/09/2016 16:14:Luz Maddox RN) : 1 (12/09/2016 16:14:Yarelis Glass RN) Para: 1 (12/09/2016 16:14:Yarelis Glass RN) Spontaneous Abortions: 0 (12/09/2016 16:14:Yarelis Glass RN) Induced Abortions: 0 (12/09/2016 16:14:Yarelis Glass RN) Livin (12/09/2016 16:14:Yarelis Glass RN) Baby, Number in Womb: 1 (12/09/2016 16:14:Yarelis Glass RN) [facility]ARE [facility] (12/09/2016 16:14:Luz Maddox RN) Adequate Care: Yes (12/09/2016 16:14:Yarelis Glass RN) Prepregnancy Weight (lb): 162 (12/09/2016 16:14:Yarelis Glass RN) Prepregnancy Weight (kg): 73.6 (12/09/2016 16:14:QS system process) Height (in): 66 (12/09/2016 16:40:QS system process) ALLERGIES Medication Allergy: No (12/09/2016 16:14:Yarelis Glass RN) Medication Allergies: No Known Allergies (12/09/2016) (12/09/2016 16:39:QS system process) Latex Allergy: No Latex Allergies (12/09/2016 16:14:Yarelis Glass RN) Food Allergies: denies (12/09/2016 16:14:Yarelis Glass RN) Environmental Allergies: denies (12/09/2016 16:14:Yarelis Glass RN) COMMUNICATION Primary Language: Belizean (12/09/2016 16:14:Luz Maddox RN) Medical Tx Preferred Language: Belizean (12/09/2016 16:14:Luz Maddox RN) Communication Barrier(s): None (12/09/2016 16:14:Yarelis Glass RN) DEMOGRAPHICS Address: [address] [place] [id number] (12/09/2016 16:12:QS system process) Zipcode: [address] (12/09/2016 16:12:QS system process) Home (12/09/2016 16:12:QS system process) N: [id number] (12/09/2016 16:12:QS system process) Next of Kin Name: ABILIO STOVALL (12/09/2016 16:12:QS system process) Next of Kin (12/09/2016 16:12:QS system process) Next of Kin Relationship: SPO (12/09/2016 16:12:QS system process) Date of : 1985 (12/09/2016 16:12:QS system process) Marital Status: (12/09/2016 16:12:QS system process) Sex: Female (12/09/2016 16:12:QS system process) Race: (12/09/2016 16:12:QS system process) Ethnicity: Non- or (12/09/2016 16:12:QS system process) Mu-Ism: None (12/09/2016 16:12:QS system process) DRUG AND ALCOHOL USE Alcohol: No (12/09/2016 16:14:Yarelis Glass RN) Cigarettes: Never Smoker. [id number] (12/09/2016 16:14:Yarelis Glass RN) Marijuana: No (12/09/2016 16:14:Yarelis Glass RN) Cocaine: No (12/09/2016 16:14:Yarelis Glass RN) Other Illicit Drugs: No (12/09/2016 16:14:Yarelis Glass RN) VACCINE HISTORY Influenza Vaccine: No (12/09/2016 16:14:Yarelis Glass RN) Pneumococcal Vaccine: No (12/09/2016 16:14:Yarelis Glass RN) Tdap Vaccine: Uncertain (12/09/2016 16:14:Yarelis Glass RN) Hepatitis B Vaccine: Uncertain (12/09/2016 16:14:Yarelis Glass RN) Feeding Preference: Formula (12/09/2016 16:14:Yarelis Glass RN) Benefit of Breast Feed Discussed: Yes (12/09/2016 16:14:Yarelis Glass RN) Circumcision: N/A (12/09/2016 16:14:Yarelis Glass RN) Tubal Ligation: No (12/09/2016 16:14:Yarelis Glass RN) Tubal Authorization Signed: N/A (12/09/2016 16:14:Yarelis Glass RN) Consent: N/A (12/09/2016 16:14:Yarelis Glass RN) Consent Signed: N/A (12/09/2016 16:14:Yarelis Glass RN) Support Person: Abilio Stovall (12/09/2016 16:14:Yarelis Glass RN) Support Person Relationship: (12/09/2016 16:14:Yarelis Glass RN) Cultural/Spritual Practice: No (12/09/2016 16:14:Yarelis Glass RN) Spir/Cult Dietary Needs: No (12/09/2016 16:14:Yarelis Glass RN) LIVING SITUATION/DISCHARGE PLAN Discharge Medical Staff Coordinator Person: Abilio Stovall (12/09/2016 16:14:Yarelis Glass RN) Person to Help after Discharge: Abilio Stovall (12/09/2016 16:14:Yarelis Glass RN)
--- NOTE | 2016-12-10 22:45 | L&D Discharge Summary ---
OB Discharge Summary Datetime Report Generated by CPN: 12/10/2016 22:45 DISCHARGE DIAGNOSIS Diagnosis/Symptoms: False Labor Diagnoses/Symptoms Other: not in labor; vaginal bleeding Gestation: 29.6 Number of Babies in Womb: 1 Parity: 1 DIET/ACTIVITY/RESTRICTIONS Diet: Regular Activity Restrictions: No Exercising; No Lifting; Minimize Walking; Minimize Stair Climbing; No Sexual Activity; Nothing in Vagina - [place], Tampons, Douche TEACHING/INSTRUCTIONS/REFERRALS Instructions Given To: patient and Instructions Understood: Patient Verbalized Understanding; Support Person Verbalized Understanding Referrals: None Educational Materials- Other: Pre-E and kick counts DISCHARGE INFORMATION Discharged AMA: No Physician Notified of Disch AMA: n/a Discharge Date/Time: 12/09/2016 18:50 Discharged To: Home Discharge Provider Name: Mueller Accompanied By: Discharge Method: Ambulatory Condition: Stable FOLLOW UP INFORMATION Follow Up With: [facility] Follow Up On: 1-2 Days GENERAL INSTR-CALL PROVIDER IF: Contractions: Contractions or cramps become more frequent than 8 in one hour or 4 in 20 minutes; Regular painful contractions every 5 minutes or less for one hour. Time your contractions from the beginning of one to the beginning of the next Pressure: Pressure in your vagina or lower abdomen that may feel like the baby is pushing down Period Like Cramps: Period-like cramps or low dull backache that may come and go Cramps/Diarrhea: Abdominal cramps that may be accompanied by diarrhea Gush of Fluid/Blood: Gush of fluid or blood from your vagina (it is normal to have spotting after vaginal exam or intercourse) Vaginal Discharge: Change in the type or amount of vaginal discharge Decreased Movement: Your baby is not moving as much as usual- 4 movements in 1 hour after drinking and resting on side Temperature: Temperature greater than 100.0(F) orally
== END 2016-12-09 18:50 | disposition home or self-care (01) ==
LOC: ER 15:52 → LC 18:50
PROVIDERS: ATTEND Student in an Organized Health Care Education/Training Program
PROC: 4A1HXCZ Monitoring of Products of Conception, Cardiac Rate, External Approach (ICD-10-PCS; principal; 2016-12-09)
DX: O47.03 False labor before 37 completed weeks of gestation, third trimester (principal); O46.93 Antepartum hemorrhage, unspecified, third trimester; Z3A.29 29 weeks gestation of pregnancy
CPT/HCPCS: 76815; 80307; 81001

== ENCOUNTER 2016-12-12 15:43 | Outpatient (CLI) | payer BC ==
[2016-12-12 16:15] LABS: APPEARANCE,URINE CLEAR; BILIRUBIN,URINE NEGATIVE (NEGATIVE); GLUCOSE, URINE NEGATIVE (NEGATIVE); KETONES,URINE NEGATIVE (NEGATIVE); LEUKOCYTE ESTERASE,URINE NEGATIVE (NEGATIVE); NITRITE,URINE NEGATIVE (NEGATIVE); PROTEIN,URINE NEGATIVE (NEGATIVE); URINE SPECIFIC GRAVITY 1.005; UROBILINOGEN,URINE NEGATIVE mg/dL (<2.0)
[2016-12-12 16:34] LABS: ABSOLUTE LYMPHOCYTES (AUTO) 1.5 10^3/uL (0.5-4.7); ABSOLUTE MONOCYTES (AUTO) 0.7 10^3/uL (0.1-1.4); ABSOLUTE NEUT (AUTO) 5.9 10^3/uL (1.7-8.2); BASOPHILS % (AUTO) 0.5 % (0-2); EOSINOPHILS % (AUTO) 0.2 % (0-6); HEMATOCRIT 31.4 % (36.0-47.0); HEMOGLOBIN 10.5 g/dL (12.0-15.5); HGB HCT DIFFERENCE 0.1; LYMPHOCYTES % (AUTO) 17.9 % (13-45); MEAN CORPUSCULAR HEMOGLOBIN 28.1 pg (27.0-33.4); MEAN CORPUSCULAR HGB CONC 33.5 g/dL (32.0-36.0); MEAN CORPUSCULAR VOLUME 84 fl (80-97); RED BLOOD COUNT 3.74 10^6/uL (3.72-5.28); RED CELL DISTRIBUTION WIDTH 12.9 % (11.5-14.0); SEGMENTED NEUTROPHILS % (AUTO) 72.4 % (42-78); WHITE BLOOD COUNT 8.2 10^3/uL (4.0-10.5)
[2016-12-12 16:37] LABS: URINE BARBITURATES SCREEN NEGATIVE; URINE METHADONE SCREEN NEGATIVE; URINE OPIATES LOW NEGATIVE; URINE PHENCYCLIDINE SCREEN NEGATIVE
[2016-12-12 16:52] LABS: ALANINE AMINOTRANSFERASE 22 U/L (9-52); ALBUMIN 3.2 g/dL (3.5-5.0); ALKALINE PHOSPHATASE 130 U/L (38-126); ANION GAP 10 (5-19); ASPARTATE AMINO TRANSFERASE 17 U/L (14-36); BILIRUBIN,DIRECT 0.1 mg/dL (0.0-0.4); BILIRUBIN,TOTAL 0.4 mg/dL (0.2-1.3); BLOOD UREA NITROGEN 10 mg/dL (7-20); CALCIUM 8.8 mg/dL (8.4-10.2); CARBON DIOXIDE 20 mmol/L (22-30); CHLORIDE 108 mmol/L (98-107); GLUCOSE 82 mg/dL (75-110); LDH 449 U/L (313-618); POTASSIUM 4.5 mmol/L (3.6-5.0); SODIUM 138.1 mmol/L (137-145); TOTAL PROTEIN 5.7 g/dL (6.3-8.2); URIC ACID 5.4 mg/dL (2.5-6.2)
== END 2016-12-12 17:09 | disposition home or self-care (01) ==
LOC: LC 15:43
PROVIDERS: ATTEND Obstetrics & Gynecology
PROC: 4A1HXCZ Monitoring of Products of Conception, Cardiac Rate, External Approach (ICD-10-PCS; principal; 2016-12-12)
DX: O10.913 Unspecified pre-existing hypertension complicating pregnancy, third trimester (principal); Z3A.30 30 weeks gestation of pregnancy
CPT/HCPCS: 36415; 80053; 80307; 81001; 83615; 84550; 85025

== ENCOUNTER 2016-12-15 17:20 | Observation (INO) | payer BC ==
--- NOTE | 2016-12-15 18:02 | L&D Current Admission ---
Current Admit Datetime Report Generated by CPN: 12/15/2016 18:00 ADMISSION INFORMATION Chief Complaint: Other (Annotations: Elevated BP) (12/15/2016 17:52:Dianelys Trace, KEON)
--- NOTE | 2016-12-15 18:02 | L&D General Admission ---
General Admit Datetime Report Generated by CPN: 12/15/2016 18:00 INFORMATION Patient Age: 31 (12/09/2016 16:12:QS system process) EDC: 02/18/2017 00:00 (12/09/2016 16:14:Luz Maddox RN) : 1 (12/09/2016 16:14:Yarelis Glass RN) Para: 0 (12/09/2016 16:14:Andreea Hutchison RN) Spontaneous Abortions: 0 (12/09/2016 16:14:Yarelis Glass RN) Induced Abortions: 0 (12/09/2016 16:14:Yarelis Glass RN) Livin (12/09/2016 16:14:Andreea Hutchison RN) Baby, Number in Womb: 1 (12/09/2016 16:14:Yarelis Glass RN) CARE [facility] (12/09/2016 16:14:Luz Maddox RN) Adequate Care: Yes (12/09/2016 16:14:Yarelis Glass RN) Prepregnancy Weight (lb): 162 (12/09/2016 16:14:Yarelis Glass RN) Prepregnancy Weight (kg): 73.6 (12/09/2016 16:14:QS system process) Height (in): 66 (12/12/2016 16:22:QS system process) ALLERGIES Medication Allergy: No (12/09/2016 16:14:Yarelis Glass RN) Medication Allergies: No Known Allergies (12/12/2016) (12/12/2016 15:52:QS system process) Latex Allergy: No Latex Allergies (12/09/2016 16:14:Yarelis Glass RN) Food Allergies: denies (12/09/2016 16:14:Yarelis Glass RN) Environmental Allergies: denies (12/09/2016 16:14:Yarelis Glass RN) COMMUNICATION Primary Language: Slovak (12/09/2016 16:14:Luz Maddox RN) Medical Tx Preferred Language: Slovak (12/09/2016 16:14:Luz Maddox RN) Communication Barrier(s): None (12/09/2016 16:14:Yarelis Glass RN) DEMOGRAPHICS Address: [address] [place] [id number] (12/09/2016 16:12:QS system process) Zipcode: [phone] (12/09/2016 16:12:QS system process) Home (12/09/2016 16:12:QS system process) SSN: [id number] (12/09/2016 16:12:QS system process) Next of Kin Name: ABILIO LANDIN (12/09/2016 16:12:QS system process) Next of Kin (12/09/2016 16:12:QS system process) Next of Kin Relationship: SPO (12/09/2016 16:12:QS system process) Date of : 1985 (12/09/2016 16:12:QS system process) Marital Status: (12/09/2016 16:12:QS system process) Sex: Female (12/09/2016 16:12:QS system process) Race: (12/09/2016 16:12:QS system process) Ethnicity: Non- or (12/09/2016 16:12:QS system process) Amish: None (12/09/2016 16:12:QS system process) DRUG AND ALCOHOL USE Alcohol: No (12/09/2016 16:14:Yarelis Glass RN) Cigarettes: Never Smoker. [id number] (12/09/2016 16:14:Yarelis Glass RN) Marijuana: No (12/09/2016 16:14:Yarelis Glass RN) Cocaine: No (12/09/2016 16:14:Yarelis Glass RN) Other Illicit Drugs: No (12/09/2016 16:14:Yarelis Glass RN) VACCINE HISTORY Influenza Vaccine: No (12/09/2016 16:14:Yarelis Glass RN) Pneumococcal Vaccine: No (12/09/2016 16:14:Yarelis Glass RN) Tdap Vaccine: Uncertain (12/09/2016 16:14:Yarelis Glass RN) Hepatitis B Vaccine: Uncertain (12/09/2016 16:14:Yarelis Glass RN) Feeding Preference: Formula (12/09/2016 16:14:Yarelis Glass RN) Benefit of Breast Feed Discussed: Yes (12/09/2016 16:14:Yarelis Glass RN) Circumcision: N/A (12/09/2016 16:14:Yarelis Glass RN) Tubal Ligation: No (12/09/2016 16:14:Yarelis Glass RN) Tubal Authorization Signed: N/A (12/09/2016 16:14:Yarelis Glsas RN) Consent: N/A (12/09/2016 16:14:Yarelis Glass RN) Consent Signed: N/A (12/09/2016 16:14:Yarelis Glass RN) Support Person: Abilio Landin (12/09/2016 16:14:Yarelis Glass RN) Support Person Relationship: (12/09/2016 16:14:Yarelis Glass RN) Cultural/Spritual Practice: No (12/09/2016 16:14:Yarelis Glass RN) Spir/Cult Dietary Needs: No (12/09/2016 16:14:Yarelis Glass RN) LIVING SITUATION/DISCHARGE PLAN Discharge Metal Mockup Maker Person: Abilio Landin (12/09/2016 16:14:Yarelis Glass RN) Person to Help after Discharge: Abilio Landin (12/09/2016 16:14:Yarelis Glass RN) LABS Hemoglobin: 10.5 L (12/12/2016 16:04:QS system process) Hematocrit: 31.4 L (12/12/2016 16:04:QS system process) MCV: 84 (12/12/2016 16:04:QS system process)
[2016-12-15 18:18] LABS: APPEARANCE,URINE CLEAR; BILIRUBIN,URINE NEGATIVE (NEGATIVE); GLUCOSE, URINE NEGATIVE (NEGATIVE); KETONES,URINE NEGATIVE (NEGATIVE); LEUKOCYTE ESTERASE,URINE NEGATIVE (NEGATIVE); NITRITE,URINE NEGATIVE (NEGATIVE); PROTEIN,URINE 30 mg/dL (NEGATIVE); URINE SPECIFIC GRAVITY 1.003; UROBILINOGEN,URINE NEGATIVE mg/dL (<2.0)
[2016-12-15] MEDS ORDERED: HYDRALAZINE HCL INJ/PF 20 MG/1 ML SDV ONE (18:30)
[2016-12-15 18:31] LABS: URINE BARBITURATES SCREEN NEGATIVE; URINE METHADONE SCREEN NEGATIVE; URINE OPIATES LOW NEGATIVE; URINE PHENCYCLIDINE SCREEN NEGATIVE
[2016-12-15] MEDS ORDERED: NIFEDIPINE 30 MG TAB.ER.24 PO ONE (18:40)
[2016-12-15] MEDS ORDERED: BETAMET ACET/BETAMET NA INJ 6 MG/1 ML ONE (18:40)
[2016-12-15 19:37] LABS: ABSOLUTE LYMPHOCYTES (AUTO) 1.6 10^3/uL (0.5-4.7); ABSOLUTE MONOCYTES (AUTO) 0.8 10^3/uL (0.1-1.4); ABSOLUTE NEUT (AUTO) 7.5 10^3/uL (1.7-8.2); BASOPHILS % (AUTO) 0.5 % (0-2); EOSINOPHILS % (AUTO) 0.3 % (0-6); HEMATOCRIT 32.5 % (36.0-47.0); HEMOGLOBIN 10.9 g/dL (12.0-15.5); HGB HCT DIFFERENCE 0.2; LYMPHOCYTES % (AUTO) 16.4 % (13-45); MEAN CORPUSCULAR HEMOGLOBIN 28.2 pg (27.0-33.4); MEAN CORPUSCULAR HGB CONC 33.6 g/dL (32.0-36.0); MEAN CORPUSCULAR VOLUME 84 fl (80-97); RED BLOOD COUNT 3.87 10^6/uL (3.72-5.28); RED CELL DISTRIBUTION WIDTH 12.8 % (11.5-14.0); SEGMENTED NEUTROPHILS % (AUTO) 74.8 % (42-78)
[2016-12-15 19:50] LABS: ALANINE AMINOTRANSFERASE 25 U/L (9-52); ALBUMIN 3.4 g/dL (3.5-5.0); ALKALINE PHOSPHATASE 143 U/L (38-126); ANION GAP 9 (5-19); ASPARTATE AMINO TRANSFERASE 16 U/L (14-36); BILIRUBIN,DIRECT 0.2 mg/dL (0.0-0.4); BILIRUBIN,TOTAL 0.5 mg/dL (0.2-1.3); BLOOD UREA NITROGEN 9 mg/dL (7-20); CALCIUM 9.5 mg/dL (8.4-10.2); CARBON DIOXIDE 23 mmol/L (22-30); CHLORIDE 109 mmol/L (98-107); CREATININE RESULT 0.53 mg/dL (0.52-1.25); GLUCOSE 78 mg/dL (75-110); LDH 508 U/L (313-618); POTASSIUM 4.1 mmol/L (3.6-5.0); SODIUM 141.2 mmol/L (137-145); TOTAL PROTEIN 6.2 g/dL (6.3-8.2); URIC ACID 5.4 mg/dL (2.5-6.2)
--- NOTE | 2016-12-15 20:02 | L&D Flow Sheet ---
LD Flowsheet Datetime Report Generated by CPN: 12/15/2016 20:00 Datetime: 12/15/2016 19:47 NBP Sys/Dyana/Mean (mmHg): 155 (QS system process) : 85 (QS system process) : 115 (QS system process) Pulse: 72 (QS system process) LaborFlag: Antepartum (QS system process) Datetime: 12/15/2016 19:17 NBP Sys/Dyana/Mean (mmHg): 143 (QS system process) : 89 (QS system process) : 111 (QS system process) Pulse: 71 (QS system process) LaborFlag: Antepartum (QS system process) Datetime: 12/15/2016 19:02 NBP Sys/Dyana/Mean (mmHg): 145 (QS system process) : 88 (QS system process) : 111 (QS system process) Pulse: 73 (QS system process) LaborFlag: Antepartum (QS system process) Datetime: 12/15/2016 19:00 Monitor Mode: External (Dianelys Broman, RN) Frequency (min): none (Dianelys Bromkeon, RN) Duration Criteria: Less than Two 120 Second Contractions (Dianelys Broman, RN) Resting Tone (Palpate): Relaxed (Dianelys Woodward, RN) Monitor Mode: External US (Dianelys Woodward RN) Monitor Interventions for FHR: Ultrasound Adjusted (Dianelysysabel Woodward, RN) FHR Baseline Rate : 135 (Dianelys Broman, RN) Variability: Moderate 6-25 bpm (Dianelys Broman, RN) Accelerations: None (Dianelys Bromkeon, RN) Decelerations: None (Dianelys Broman, RN) Comments: RN at bedside adjusting US (Dianelys Broman, RN) Datetime: 12/15/2016 18:58 Steroids: Celestone 12mg IM - Dose 1 (Dianelys Broman, RN) Datetime: 12/15/2016 18:57 NBP Sys/Dyana/Mean (mmHg): 154 (QS system process) : 93 (QS system process) : 118 (QS system process) Pulse: 80 (QS system process) LaborFlag: Antepartum (QS system process) Datetime: 12/15/2016 18:48 Medication Comments: 5 mg Apresoline IV given per Dr. Mueller (Dianelys Broman, RN) Datetime: 12/15/2016 18:47 NBP Sys/Dyana/Mean (mmHg): 167 (QS system process) : 97 (QS system process) : 125 (QS system process) Pulse: 70 (QS system process) LaborFlag: Antepartum (QS system process) Datetime: 12/15/2016 18:44 Medication Comments: 30 mg Procardia PO per Dr. Mueller (Dianelys Broman, RN) Datetime: 12/15/2016 18:30 Monitor Mode: External (Dianelys Broman, RN) Frequency (min): none (Dianelys Broman, RN) Duration Criteria: Less than Two 120 Second Contractions (Dianelys Broman, RN) Resting Tone (Palpate): Relaxed (Dianleys Broman, RN) Monitor Mode: External US (Dianelys Broman, RN) Monitor Interventions for FHR: Ultrasound Adjusted (Dianelys Broman, RN) FHR Baseline Rate : 125 (Dianelys Broman, RN) Variability: Moderate 6-25 bpm (Dianelys Broman, RN) Accelerations: 15X15 (Dianelys Broman, RN) Decelerations: None (Dianelys Broman, RN) Datetime: 12/15/2016 18:17 NBP Sys/Dyana/Mean (mmHg): 177 (QS system process) : 111 (QS system process) : 138 (QS system process) Pulse: 67 (QS system process) LaborFlag: Antepartum (QS system process) Datetime: 12/15/2016 18:00 Monitor Mode: External (Dianelys Broman, RN) Frequency (min): none (Dianelys Broman, RN) Resting Tone (Palpate): Relaxed (Dianelys Broman, RN) Variability: Moderate 6-25 bpm (Dianelys Broman, RN) Datetime: 12/15/2016 17:52 Pain Scale: 0 (Dianelys Broman, RN) Pain Presence: None/Denies (Dianelys Broman, RN) Pain Relief Measures: Comfort Measures (Dianelys Broman, RN) Membrane Status: Intact (Dianelys Broman, RN) Vaginal Bleeding: None (Dianelys Broman, RN) Level of Consciousness: Fully Conscious (Dianelys Broman, RN) DTR's/Clonus: DTRs 2+; No Clonus (Dianelys Broman, RN) Headache: Denies (Dianelys Broman, RN) Breath Sounds, Left: Clear and Equal (Dianelys Broman, RN) Breath Sounds, Right: Clear and Equal (Dianelys Broman, RN) Nausea/Vomiting: Denies (Dianelys Broman, RN) RUQ Epigastric Pain: Denies (Dianelys Broman, RN) LaborFlag: Antepartum (QS system process) Datetime: 12/15/2016 17:47 NBP Sys/Dyana/Mean (mmHg): 169 (QS system process) : 103 (QS system process) : 131 (QS system process) Pulse: 71 (QS system process) LaborFlag: Antepartum (QS system process)
[2016-12-15] MEDS ORDERED: RINGERS SOLUTION,LACTATED 1,000 ML IV PRN (20:44)
[2016-12-15] MEDS ORDERED: LABETALOL HCL 200 MG TABLET ONE (20:52)
[2016-12-15] MEDS ORDERED: LABETALOL HCL 200 MG TABLET PO ONE (21:00)
[2016-12-16 06:20] LABS: ABSOLUTE LYMPHOCYTES (AUTO) 0.9 10^3/uL (0.5-4.7); ABSOLUTE MONOCYTES (AUTO) 0.2 10^3/uL (0.1-1.4); ABSOLUTE NEUT (AUTO) 7.5 10^3/uL (1.7-8.2); BASOPHILS % (AUTO) 0.1 % (0-2); HEMATOCRIT 32.8 % (36.0-47.0); HGB HCT DIFFERENCE 0.2; LYMPHOCYTES % (AUTO) 10.9 % (13-45); MEAN CORPUSCULAR HEMOGLOBIN 28.3 pg (27.0-33.4); MEAN CORPUSCULAR HGB CONC 33.7 g/dL (32.0-36.0); MEAN CORPUSCULAR VOLUME 84 fl (80-97); MONOCYTES % (AUTO) 2.6 % (3-13); RED CELL DISTRIBUTION WIDTH 12.8 % (11.5-14.0); SEGMENTED NEUTROPHILS % (AUTO) 86.4 % (42-78); WHITE BLOOD COUNT 8.7 10^3/uL (4.0-10.5)
[2016-12-16 06:31] LABS: ALANINE AMINOTRANSFERASE 26 U/L (9-52); ALBUMIN 3.4 g/dL (3.5-5.0); ALKALINE PHOSPHATASE 136 U/L (38-126); ANION GAP 13 (5-19); ASPARTATE AMINO TRANSFERASE 16 U/L (14-36); BILIRUBIN,DIRECT 0.2 mg/dL (0.0-0.4); BILIRUBIN,TOTAL 0.5 mg/dL (0.2-1.3); BLOOD UREA NITROGEN 9 mg/dL (7-20); CALCIUM 9.1 mg/dL (8.4-10.2); CARBON DIOXIDE 18 mmol/L (22-30); CHLORIDE 108 mmol/L (98-107); GLUCOSE 101 mg/dL (75-110); LDH 490 U/L (313-618); POTASSIUM 4.5 mmol/L (3.6-5.0); SODIUM 139.2 mmol/L (137-145); TOTAL PROTEIN 6.2 g/dL (6.3-8.2)
[2016-12-16] MEDS ORDERED: LABETALOL HCL 200 MG TABLET ONE ×2 (07:27→13:51)
[2016-12-16] MEDS ORDERED: NIFEDIPINE 30 MG TAB.ER.24 PO ONE (07:27)
[2016-12-16] MEDS: LABETALOL HCL 200 MG TABLET PO SCH ×2 (07:28→13:51)
--- NOTE | 2016-12-16 08:01 | L&D Flow Sheet ---
LD Flowsheet Datetime Report Generated by CPN: 12/16/2016 08:00 Datetime: 12/16/2016 07:39 NBP Sys/Dyana/Mean (mmHg): 143 (QS system process) : 89 (QS system process) : 110 (QS system process) Pulse: 106 (QS system process) LaborFlag: Antepartum (QS system process) Datetime: 12/16/2016 07:33 Level of Consciousness: Fully Conscious (Dianelys Broman, RN) DTR's/Clonus: DTRs 2+; No Clonus (Dianelys Broman, RN) Headache: Denies (Dianelys Broman, RN) Breath Sounds, Left: Clear and Equal (Dianelys Broman, RN) Breath Sounds, Right: Clear and Equal (Dianelys Broman, RN) Nausea/Vomiting: Denies (Dianelys Broman, RN) RUQ Epigastric Pain: Denies (Dianelys Broman, RN) Datetime: 12/16/2016 07:29 Monitor Mode: External (Dianelys Broman, RN) Frequency (min): none (Dianelys Broman, RN) Resting Tone (Palpate): Relaxed (Dianelys Broman, RN) Monitor Mode: External US (Dianelys Broman, RN) FHR Baseline Rate : 130 (Dianelys Broman, RN) Variability: Moderate 6-25 bpm (Dianelys Broman, RN) Accelerations: 15X15 (Dianelys Broman, RN) Decelerations: None (Dianelys Broman, RN) Datetime: 12/16/2016 07:28 Pulse: 104 (QS system process) SpO2 (%): 97 (QS system process) LaborFlag: Antepartum (QS system process) Datetime: 12/16/2016 07:27 NBP Sys/Dyana/Mean (mmHg): 143 (QS system process) : 84 (QS system process) : 108 (QS system process) Pulse: 101 (QS system process) Medication Comments: 30 mg Procardia PO and 400 mg Labetalol PO (Dianelys Broman, RN) LaborFlag: Antepartum (QS system process) Datetime: 12/16/2016 07:23 Pulse: 106 (QS system process) SpO2 (%): 97 (QS system process) LaborFlag: Antepartum (QS system process) Datetime: 12/16/2016 07:18 Pulse: 99 (QS system process) SpO2 (%): 97 (QS system process) LaborFlag: Antepartum (QS system process) Datetime: 12/16/2016 07:13 Pulse: 98 (QS system process) SpO2 (%): 97 (QS system process) LaborFlag: Antepartum (QS system process) Datetime: 12/16/2016 07:09 NBP Sys/Dyana/Mean (mmHg): 130 (QS system process) : 84 (QS system process) : 102 (QS system process) Pulse: 103 (QS system process) LaborFlag: Antepartum (QS system process) Datetime: 12/16/2016 07:08 Pulse: 97 (QS system process) SpO2 (%): 97 (QS system process) LaborFlag: Antepartum (QS system process) Datetime: 12/16/2016 07:03 Pulse: 94 (QS system process) SpO2 (%): 97 (QS system process) LaborFlag: Antepartum (QS system process) Datetime: 12/16/2016 07:00 Monitor Mode: External (Mary Lou Garcia RN) Frequency (min): 2-5 (Mary Lou Garcia RN) Quality: Mild (Mary Lou Radha, RN) Duration (sec): 30-60 (Mary Lou Radha, RN) Resting Tone (Palpate): Relaxed (Mary Lou Garcia RN) Monitor Mode: External US (Mary Lou Radha, RN) FHR Baseline Rate : 125 (Mary Lou Radha, RN) Variability: Moderate 6-25 bpm (Mary Lou Radha, RN) Accelerations: 15X15 (Mary Lou Radha, RN) Decelerations: None (Mary Lou Radha, RN) Datetime: 12/16/2016 06:58 Pulse: 114 (QS system process) SpO2 (%): 97 (QS system process) LaborFlag: Antepartum (QS system process) Datetime: 12/16/2016 06:50 Pulse: 105 (QS system process) SpO2 (%): 94 (QS system process) LaborFlag: Antepartum (QS system process) Datetime: 12/16/2016 06:49 Pulse: 100 (QS system process) SpO2 (%): 94 (QS system process) LaborFlag: Antepartum (QS system process) Datetime: 12/16/2016 06:45 Pulse: 97 (QS system process) SpO2 (%): 96 (QS system process) LaborFlag: Antepartum (QS system process) Datetime: 12/16/2016 06:44 Pulse: 95 (QS system process) SpO2 (%): 94 (QS system process) LaborFlag: Antepartum (QS system process) Datetime: 12/16/2016 06:40 NBP Sys/Dyana/Mean (mmHg): 141 (QS system process) : 93 (QS system process) : 113 (QS system process) Pulse: 94 (QS system process) SpO2 (%): 95 (QS system process) LaborFlag: Antepartum (QS system process) Datetime: 12/16/2016 06:39 Pulse: 116 (QS system process) SpO2 (%): 93 (QS system process) LaborFlag: Antepartum (QS system process) Datetime: 12/16/2016 06:35 Pulse: 99 (QS system process) SpO2 (%): 95 (QS system process) LaborFlag: Antepartum (QS system process) Datetime: 12/16/2016 06:30 Pulse: 92 (QS system process) SpO2 (%): 95 (QS system process) Monitor Mode: External (Mary Lou Radha, RN) Frequency (min): Irritability (Mary Lou Radha, RN) Quality: Mild (Mary Lou Radha, RN) Duration (sec): 30-50 (Mary Luo Radha, RN) Resting Tone (Palpate): Relaxed (Mary Lou Radha, RN) Monitor Mode: External US (Mary Lou Radha, RN) FHR Baseline Rate : 125 (Mary Lou Radha, RN) Variability: Moderate 6-25 bpm (Mary Lou Radha, RN) Accelerations: 15X15 (Mary Lou Radha, RN) Decelerations: None (Mary Lou Radha, RN) LaborFlag: Antepartum (QS system process) Datetime: 12/16/2016 06:25 Pulse: 94 (QS system process) SpO2 (%): 96 (QS system process) LaborFlag: Antepartum (QS system process) Datetime: 12/16/2016 06:20 Pulse: 96 (QS system process) SpO2 (%): 96 (QS system process) LaborFlag: Antepartum (QS system process) Datetime: 12/16/2016 06:15 Pulse: 107 (QS system process) SpO2 (%): 96 (QS system process) LaborFlag: Antepartum (QS system process) Datetime: 12/16/2016 06:10 NBP Sys/Dyana/Mean (mmHg): 139 (QS system process) : 87 (QS system process) : 108 (QS system process) Pulse: 94 (QS system process) Pulse: 113 (QS system process) SpO2 (%): 95 (QS system process) LaborFlag: Antepartum (QS system process) Datetime: 12/16/2016 06:09 Pulse: 109 (QS system process) SpO2 (%): 93 (QS system process) LaborFlag: Antepartum (QS system process) Datetime: 12/16/2016 06:05 Pulse: 96 (QS system process) SpO2 (%): 95 (QS system process) LaborFlag: Antepartum (QS system process) Datetime: 12/16/2016 06:01 Monitor Interventions for FHR: Ultrasound Adjusted (Mary Lou Radha, RN) Communication: RN at Bedside (Mary Lou Radha, RN) Datetime: 12/16/2016 06:00 Pulse: 96 (QS system process) SpO2 (%): 96 (QS system process) Monitor Mode: External (Mary Lou Radha, RN) Frequency (min): none (Mary Lou Radha, RN) Resting Tone (Palpate): Relaxed (Mary Lou Radha, RN) Monitor Mode: External US (Mary Lou Radha, RN) FHR Baseline Rate : 120 (Mary Lou Radha, RN) Variability: Moderate 6-25 bpm (Mary Lou Radha, RN) Accelerations: 10X10 (Mary Lou Radha, RN) Decelerations: None (Mary Lou Radha, RN) LaborFlag: Antepartum (QS system process) Datetime: 12/16/2016 05:59 IV/Blood Work: Labs Drawn (Mary Lou Radha, RN) Datetime: 12/16/2016 05:57 Comments: maternal HR tracing (Mary Lou Radha, RN) Patient Care Comments: lab at bedside; pt sitting up again (Mary Lou Radha, RN) Datetime: 12/16/2016 05:54 Comments: FHR auscultated in 140s (Mary Lou Radha, RN) Datetime: 12/16/2016 05:52 Comments: maternal HR auscultated in 90s; pt sitting up for comfort; u/s adjusted (Mary Lou Radha, RN) Communication: RN at Bedside (Mary Lou Radha, RN) Datetime: 12/16/2016 05:40 NBP Sys/Dyana/Mean (mmHg): 129 (QS system process) : 61 (QS system process) : 88 (QS system process) Pulse: 88 (QS system process) LaborFlag: Antepartum (QS system process) Datetime: 12/16/2016 05:30 Monitor Mode: External (Mary Lou Radha, RN) Frequency (min): none (Mary Lou Radha, RN) Resting Tone (Palpate): Relaxed (Mary Lou Radha, RN) Monitor Mode: External US (Mary Lou Radha, RN) FHR Baseline Rate : 120 (Mary Lou Radha, RN) Variability: Moderate 6-25 bpm (Mary Lou Radha, RN) Accelerations: 15X15 (Mary Lou Radha, RN) Decelerations: None (Mary Lou Radha, RN) Datetime: 12/16/2016 05:19 Monitor Interventions for FHR: Ultrasound Adjusted (Mary Lou Radha, RN) Communication: RN at Bedside (Mary Lou Radha, RN) Datetime: 12/16/2016 05:10 NBP Sys/Dyana/Mean (mmHg): 134 (QS system process) : 82 (QS system process) : 103 (QS system process) Pulse: 99 (QS system process) LaborFlag: Antepartum (QS system process) Datetime: 12/16/2016 05:00 Monitor Mode: External (Mary Lou Radha, RN) Frequency (min): Irritability (Mary Lou Radha, RN) Quality: Mild (Mary Lou Radha, RN) Resting Tone (Palpate): Relaxed (Mary Lou Radha, RN) Monitor Mode: External US (Mary Lou Radha, RN) FHR Baseline Rate : 125 (Mary Lou Radha, RN) Variability: Moderate 6-25 bpm (Mary Lou Radha, RN) Accelerations: 15X15 (Mary Lou Radha, RN) Decelerations: None (Mary Lou Radha, RN) Datetime: 12/16/2016 04:40 NBP Sys/Dyana/Mean (mmHg): 132 (QS system process) : 85 (QS system process) : 104 (QS system process) Pulse: 109 (QS system process) LaborFlag: Antepartum (QS system process) Datetime: 12/16/2016 04:30 Monitor Mode: External (Mary Lou Radha, RN) Frequency (min): Irregular/ Irritability (Mary Lou Radha, RN) Quality: Mild (Mary Lou Radha, RN) Duration (sec): 30-50 (Mary Lou Radha, RN) Resting Tone (Palpate): Relaxed (Mary Lou Radha, RN) Monitor Mode: External US (Mary Lou Radha, RN) FHR Baseline Rate : 120 (Mary Lou Radha, RN) Variability: Moderate 6-25 bpm (Mary Lou Radha, RN) Accelerations: 15X15 (Mary Lou Radha, RN) Decelerations: None (Mary Lou Radha, RN) Datetime: 12/16/2016 04:10 NBP Sys/Dyana/Mean (mmHg): 147 (QS system process) : 92 (QS system process) : 113 (QS system process) Pulse: 100 (QS system process) LaborFlag: Antepartum (QS system process) Datetime: 12/16/2016 04:00 Monitor Mode: External (Mary Lou Radha, RN) Frequency (min): Irregular/ Irritability (Mary Lou Radha, RN) Quality: Mild (Mary Lou Radha, RN) Duration (sec): 30-60 (Mary Lou Radha, RN) Resting Tone (Palpate): Relaxed (Mary Lou Radha, RN) Monitor Mode: External US (Mary Lou Radha, RN) FHR Baseline Rate : 120 (Mary Lou Radha, RN) Variability: Moderate 6-25 bpm (Mary Lou Radha, RN) Accelerations: 15X15 (Mary Lou Radha, RN) Decelerations: decel noted (Mary Lou Radha, RN) Datetime: 12/16/2016 03:40 NBP Sys/Dyana/Mean (mmHg): 141 (QS system process) : 83 (QS system process) : 106 (QS system process) Pulse: 84 (QS system process) LaborFlag: Antepartum (QS system process) Datetime: 12/16/2016 03:30 Monitor Mode: External (Mary Lou Radha, RN) Frequency (min): 2-8 (Mary Lou Radha, RN) Quality: Mild (Mary Lou Radha, RN) Duration (sec): 50-80 (Mary Lou Radha, RN) Resting Tone (Palpate): Relaxed (Mary Lou Radha, RN) Monitor Mode: External US (Mary Lou Radha, RN) FHR Baseline Rate : 120 (Mary Lou Radha, RN) Variability: Moderate 6-25 bpm (Mary Lou Radha, RN) Accelerations: 15X15 (Mary Lou Radha, RN) Decelerations: None (Mary Lou Radha, RN) Datetime: 12/16/2016 03:10 NBP Sys/Dyana/Mean (mmHg): 140 (QS system process) : 82 (QS system process) : 106 (QS system process) Pulse: 89 (QS system process) LaborFlag: Antepartum (QS system process) Datetime: 12/16/2016 03:00 Monitor Mode: External (Mary Lou Radha, RN) Frequency (min): 2-6 (Mary Lou Radha, RN) Quality: Mild (Mary Lou Radha, RN) Duration (sec): 40-70 (Mary Lou Radha, RN) Resting Tone (Palpate): Relaxed (Mary Lou Radha, RN) Monitor Mode: External US (Mary Lou Radha, RN) FHR Baseline Rate : 120 (Mary Lou Radha, RN) Variability: Moderate 6-25 bpm (Mary Lou Radha, RN) Accelerations: 15X15 (Mary Lou Radha, RN) Decelerations: None (Mary Lou Radha, RN) Datetime: 12/16/2016 02:40 NBP Sys/Dyana/Mean (mmHg): 135 (QS system process) : 90 (QS system process) : 108 (QS system process) Pulse: 86 (QS system process) LaborFlag: Antepartum (QS system process) Datetime: 12/16/2016 02:30 Monitor Mode: External (Mary Lou Radha, RN) Frequency (min): none (Mary Lou Radha, RN) Resting Tone (Palpate): Relaxed (Mary Lou Radha, RN) Monitor Mode: External US (Mary Lou Radha, RN) FHR Baseline Rate : 125 (Mary Lou Radha, RN) Variability: Moderate 6-25 bpm (Mary Lou Radha, RN) Accelerations: 15X15 (Mary Lou Radha, RN) Decelerations: None (Mary Lou Radha, RN) Datetime: 12/16/2016 02:21 Monitor Interventions for FHR: Ultrasound Adjusted (Mary Lou Radha, RN) Communication: RN at Bedside (Mary Lou Radha, RN) Datetime: 12/16/2016 02:11 I/O Interventions: Up to BR (Mary Lou Radha, RN) Datetime: 12/16/2016 02:10 NBP Sys/Dyana/Mean (mmHg): 139 (QS system process) : 82 (QS system process) : 105 (QS system process) Pulse: 90 (QS system process) LaborFlag: Antepartum (QS system process) Datetime: 12/16/2016 02:00 Monitor Mode: External (Mary Lou Radha, RN) Frequency (min): none (Mary Lou Radha, RN) Resting Tone (Palpate): Relaxed (Mary Lou Radha, RN) Monitor Mode: External US (Mary Lou Radha, RN) FHR Baseline Rate : 120 (Mary Lou Radha, RN) Variability: Moderate 6-25 bpm (Mary Lou Radha, RN) Accelerations: 15X15 (Mary Lou Radha, RN) Decelerations: None (Mary Lou Radha, RN) Datetime: 12/16/2016 01:40 NBP Sys/Dyana/Mean (mmHg): 120 (QS system process) : 74 (QS system process) : 92 (QS system process) Pulse: 96 (QS system process) LaborFlag: Antepartum (QS system process) Datetime: 12/16/2016 01:30 Monitor Mode: External (Mary Lou Radha, RN) Frequency (min): none (Mary Lou Radha, RN) Resting Tone (Palpate): Relaxed (Mary Lou Radha, RN) Monitor Mode: External US (Mary Lou Radha, RN) FHR Baseline Rate : 120 (Mary Lou Radha, RN) Variability: Moderate 6-25 bpm (Mary Lou Radha, RN) Accelerations: 15X15 (Mary Lou Radha, RN) Decelerations: None (Mary Lou Radha, RN) Datetime: 12/16/2016 01:10 NBP Sys/Ydana/Mean (mmHg): 119 (QS system process) : 69 (QS system process) : 88 (QS system process) Pulse: 85 (QS system process) LaborFlag: Antepartum (QS system process) Datetime: 12/16/2016 01:00 Monitor Mode: External (Mary Lou Radha, RN) Frequency (min): none (Mary Lou Radha, RN) Resting Tone (Palpate): Relaxed (Mary Lou Radha, RN) Monitor Mode: External US (Mary Lou Radha, RN) FHR Baseline Rate : 115 (Mary Lou Radha, RN) Variability: Moderate 6-25 bpm (Mary Lou Radha, RN) Accelerations: 15X15 (Mary Lou Radha, RN) Decelerations: None (Mary Lou Radha, RN) Datetime: 12/16/2016 00:40 NBP Sys/Dyana/Mean (mmHg): 126 (QS system process) : 72 (QS system process) : 91 (QS system process) Pulse: 80 (QS system process) LaborFlag: Antepartum (QS system process) Datetime: 12/16/2016 00:30 Monitor Mode: External (Mary Lou Radha, RN) Frequency (min): none (Mary Lou Radha, RN) Resting Tone (Palpate): Relaxed (Mary Lou Radha, RN) Monitor Mode: External US (Mary Lou Radha, RN) FHR Baseline Rate : 120 (Mary Lou Radha, RN) Variability: Moderate 6-25 bpm (Mary Lou Radha, RN) Accelerations: 15X15 (Mary Lou Radha, RN) Decelerations: None (Mary Lou Radha, RN) Datetime: 12/16/2016 00:10 NBP Sys/Dyana/Mean (mmHg): 129 (QS system process) : 87 (QS system process) : 103 (QS system process) Pulse: 76 (QS system process) LaborFlag: Antepartum (QS system process) Datetime: 12/15/2016 23:40 NBP Sys/Dyana/Mean (mmHg): 139 (QS system process) : 89 (QS system process) : 110 (QS system process) Pulse: 74 (QS system process) LaborFlag: Antepartum (QS system process) Datetime: 12/15/2016 23:10 NBP Sys/Dyana/Mean (mmHg): 137 (QS system process) : 95 (QS system process) : 112 (QS system process) Pulse: 75 (QS system process) LaborFlag: Antepartum (QS system process) Datetime: 12/15/2016 23:00 Monitor Mode: External (Mary Lou Garcia RN) Frequency (min): none (Mary Lou Radha, RN) Resting Tone (Palpate): Relaxed (Mary Lou Garcia, RN) Monitor Mode: External US (Mary Lou Garcia RN) FHR Baseline Rate : 130 (Mary Loupiedad Garcia RN) Variability: Moderate 6-25 bpm (Mary Lou Radha, RN) Accelerations: 15X15 (Mary Lou Radha, RN) Decelerations: None (Mary Lou Radha, RN) Datetime: 12/15/2016 22:40 NBP Sys/Dyana/Mean (mmHg): 128 (QS system process) : 81 (QS system process) : 99 (QS system process) Pulse: 83 (QS system process) LaborFlag: Antepartum (QS system process) Datetime: 12/15/2016 22:30 Monitor Mode: External (Mary Lou Radha, RN) Frequency (min): none (Mary Lou Radha, RN) Resting Tone (Palpate): Relaxed (Mary Lou Radha, RN) Monitor Mode: External US (Mary Lou Radha, RN) FHR Baseline Rate : 130 (Mary Lou Radha, RN) Variability: Moderate 6-25 bpm (Mary Lou Radha, RN) Accelerations: 15X15 (Mary Lou Radha, RN) Decelerations: None (Mary Lou Radha, RN) Datetime: 12/15/2016 22:10 NBP Sys/Dyana/Mean (mmHg): 131 (QS system process) : 79 (QS system process) : 100 (QS system process) Pulse: 73 (QS system process) LaborFlag: Antepartum (QS system process) Datetime: 12/15/2016 22:00 Monitor Mode: External (Mary Lou Radha, RN) Frequency (min): none (Mary Lou Radha, RN) Resting Tone (Palpate): Relaxed (Mary Luo Radha, RN) Monitor Mode: External US (Mary Lou Radha, RN) FHR Baseline Rate : 130 (Mary Lou Radha, RN) Variability: Moderate 6-25 bpm (Mary Lou Radha, RN) Accelerations: 15X15 (Mary Lou Radha, RN) Decelerations: None (Mary Lou Radha, RN) Datetime: 12/15/2016 21:54 Monitor Interventions for FHR: Ultrasound Adjusted (Mary Lou Radha, RN) Communication: RN at Bedside (Mary Lou Radha, RN) Datetime: 12/15/2016 21:40 NBP Sys/Dyana/Mean (mmHg): 138 (QS system process) : 89 (QS system process) : 108 (QS system process) Pulse: 72 (QS system process) LaborFlag: Antepartum (QS system process) Datetime: 12/15/2016 21:30 Monitor Mode: External (Mary Lou Radha, RN) Frequency (min): none (Mary Lou Radha, RN) Resting Tone (Palpate): Relaxed (Mary Lou Radha, RN) Monitor Mode: External US (Mary Lou Radha, RN) FHR Baseline Rate : 130 (Mary Lou Radha, RN) Variability: Moderate 6-25 bpm (Mary Lou Radha, RN) Accelerations: 15X15 (Mary Lou Radha, RN) Decelerations: None (Mary Lou Radha, RN) Datetime: 12/15/2016 21:15 Procedures: Consents Signed (Mary Lou Radha, RN) Datetime: 12/15/2016 21:09 Monitor Interventions for FHR: Ultrasound Adjusted (Mary Lou Garcia, RN) Comments: Rn at bedside attempting to locate FHR while mother sits up reading consents (Mary Lou Theodoresel, RN) Communication: RN at Bedside (Mary Lou Radha, RN) Datetime: 12/15/2016 21:05 Medication Comments: pt took her own flexaril. OK-ed by Dr Mueller (Mary Lou Radha, RN) Datetime: 12/15/2016 21:00 Monitor Mode: External (Mary Lou Radha, RN) Frequency (min): none (Mary Lou Radha, RN) Resting Tone (Palpate): Relaxed (Mary Lou Radha, RN) Monitor Mode: External US (Mary Lou Radha, RN) FHR Baseline Rate : 125 (Mary Lou Radha, RN) Variability: Moderate 6-25 bpm (Mary Lou Radha, RN) Accelerations: 10X10 (Mary Lou Radha, RN) Decelerations: None (Mary Lou Radha, RN) Datetime: 12/15/2016 20:57 I/O Interventions: Up to BR (Mary Lou Radha, RN) Datetime: 12/15/2016 20:55 Comments: Pt sitting up in bed preparing to get up to BR; maternal HR tracing (Mary Lou Radha, RN) Datetime: 12/15/2016 20:54 Magnesium/Antihypertensives: Labetolol PO (mg) @ (Annotations: 400) (Mary Lou Radha, RN) Datetime: 12/15/2016 20:53 Comments: FHR 145; maternal HR tracing (Mary Lou Garcia, RN) Datetime: 12/15/2016 20:47 NBP Sys/Dyana/Mean (mmHg): 149 (QS system process) : 92 (QS system process) : 116 (QS system process) Pulse: 76 (QS system process) LaborFlag: Antepartum (QS system process) Datetime: 12/15/2016 20:32 NBP Sys/Dyana/Mean (mmHg): 150 (QS system process) : 88 (QS system process) : 114 (QS system process) Pulse: 71 (QS system process) LaborFlag: Antepartum (QS system process) Datetime: 12/15/2016 20:30 Monitor Mode: External (Mary Lou Radha, RN) Frequency (min): none (Mary Lou Radha, RN) Resting Tone (Palpate): Relaxed (Mary Lou Radha, RN) Monitor Mode: External US (Mary Lou Radha, RN) FHR Baseline Rate : 130 (Mary Lou Radha, RN) Variability: Moderate 6-25 bpm (Mary Lou Radha, RN) Accelerations: 15X15 (Mary Lou Radha, RN) Decelerations: None (Mary Lou Radha, RN) Datetime: 12/15/2016 20:25 Communication: Report Given to @ (Annotations: Dr Mueller ) (Mary Lou Garcia RN) Communication Comments: Communication with Dr Mueller, on unit. Will admit pt for 24 hour obs at least until betamethasone course is complete. Labetalol 400 mg PO TID and procardia 30 mg PO BID ordered. Continuous FHR monitoring. Regular diet. Repeat labs in AM (Mary Lou Radha, RN) Datetime: 12/15/2016 20:17 NBP Sys/Dyana/Mean (mmHg): 152 (QS system process) : 80 (QS system process) : 111 (QS system process) Pulse: 73 (QS system process) LaborFlag: Antepartum (QS system process) Datetime: 12/15/2016 20:05 NBP Sys/Dyana/Mean (mmHg): 171 (QS system process) : 93 (QS system process) : 126 (QS system process) Pulse: 77 (QS system process) Vital Sign Comments: Cuff adjusted, RN at bedside. Pt indicates she gets nervous while personnel at bedside (Mary Lou Garcia RN) IV/Blood Work: IV Infusing per Order (Annotations: IV running 75 mL/hr KVO per orders from Dr Mueller ) (Mary Lou Garcia RN) LaborFlag: Antepartum (QS system process) Datetime: 12/15/2016 20:03 NBP Sys/Dyana/Mean (mmHg): 167 (QS system process) : 85 (QS system process) : 115 (QS system process) Pulse: 70 (QS system process) LaborFlag: Antepartum (QS system process) Datetime: 12/15/2016 20:00 Monitor Mode: External (Mary Lou Garcia, RN) Frequency (min): none (Mary Lou Garcia RN) Resting Tone (Palpate): Relaxed (Mary Lou Garcia, RN) Monitor Mode: External US (Mary Lou Garcia, RN) FHR Baseline Rate : 125 (Mary Lou Garcia RN) Variability: Moderate 6-25 bpm (Mary Loupiedad Garcia, RN) Accelerations: None (Mary Lou Garcia, RN) Decelerations: None (Mary Lou Garcia, RN) Level of Consciousness: Fully Conscious (Mary Lou Garcia RN) Headache: Denies (Mary Lou Garcia RN) Nausea/Vomiting: Denies (Mary Lou Garcia RN)
[2016-12-16] MEDS ORDERED: FAMOTIDINE 20 MG TABLET ONE (09:30)
[2016-12-16] MEDS ORDERED: NIFEDIPINE 30 MG TAB.ER.24 PO SCH (10:00)
--- NOTE | 2016-12-16 14:46 | PDOC TRANSFER SUMMARY ---
General - Admit/Disc Date/PCP Admission Date/Primary Care Provider: 12/15/16 20:46 KEYANNA IZAGUIRRE MD Discharge Date: 12/16/16 - Discharge Diagnosis (1) Chronic hypertension Is this a current diagnosis for this admission?: YesSummary: pt d/c home Add procardia 30 XL to pts meds f/u in office for nst monday discussed s/sx of pre-eclampsia (2) Is this a current diagnosis for this admission?: YesSummary: continue routine care fm counts ptl prec - Additional Information Home Medications: Labetalol HCl [Trandate] 400 mg PO TID 12/09/16 [id number]/Iron Fumarate/FA/Dss [ 19 Tablet] 1 each PO DAILY 12/09/16 Acetaminophen [Tylenol] 650 mg PO PRN PRN 12/12/16 Cyclobenzaprine HCl [Flexeril 10 mg Tablet] 10 mg PO QHS 12/12/16 History of Present Illness Admission Date/PCP: 12/15/16 20:46 KEYANNA IZAGUIRRE MD History of Present Illness: YUMI STOVALL is a 31 year old female Hospital Course Hospital Course: 23 hour obs received 2 doses bmz for flm Physical Exam Vital Signs: Intake & Output 12/15/16 12/16/16 12/17/16 06:59 06:59 06:59 Weight 89 kg General appearance: PRESENT: no acute distress Neck exam: PRESENT: full ROM Respiratory exam: PRESENT: clear to auscultation reg Cardiovascular exam: PRESENT: RRR Results Laboratory Results: 12/16/16 05:59 12/16/16 05:59 12/15/16 12/15/16 12/15/16 17:42 19:22 19:22 WBC 10.0 RBC 3.87 Hgb 10.9 L Hct 32.5 L MCV 84 MCH 28.2 MCHC 33.6 RDW 12.8 Plt Count 197 Seg Neutrophils % 74.8 Lymphocytes % 16.4 Monocytes % 8.0 Eosinophils % 0.3 Basophils % 0.5 Absolute Neutrophils 7.5 Absolute Lymphocytes 1.6 Absolute Monocytes 0.8 Absolute Eosinophils 0.0 Absolute Basophils 0.0 Sodium 141.2 Potassium 4.1 Chloride 109 H Carbon Dioxide 23 Anion Gap 9 BUN 9 Creatinine 0.53 Est GFR ( Amer) > 60 Est GFR (Non-Af Amer) > 60 Glucose 78 Uric Acid 5.4 Calcium 9.5 Total Bilirubin 0.5 AST 16 ALT 25 Alkaline Phosphatase 143 H Total Protein 6.2 L Albumin 3.4 L Urine Color STRAW Urine Appearance CLEAR Urine pH 7.0 Ur Specific [place] 1.003 Urine Protein 30 H Urine Glucose (UA) NEGATIVE Urine Ketones NEGATIVE Urine Blood NEGATIVE Urine Nitrite NEGATIVE Ur Leukocyte Esterase NEGATIVE Urine WBC (Auto) 1 Urine RBC (Auto) 0 Blood Type Antibody Screen 12/16/16 12/16/16 12/16/16 05:59 05:59 05:59 WBC 8.7 RBC 3.90 Hgb 11.0 L Hct 32.8 L MCV 84 MCH 28.3 MCHC 33.7 RDW 12.8 Plt Count 193 Seg Neutrophils % 86.4 H Lymphocytes % 10.9 L Monocytes % 2.6 L Eosinophils % 0.0 Basophils % 0.1 Absolute Neutrophils 7.5 Absolute Lymphocytes 0.9 Absolute Monocytes 0.2 Absolute Eosinophils 0.0 Absolute Basophils 0.0 Sodium 139.2 Potassium 4.5 Chloride 108 H Carbon Dioxide 18 L Anion Gap 13 BUN 9 Creatinine 0.50 L Est GFR ( Amer) > 60 Est GFR (Non-Af Amer) > 60 Glucose 101 Uric Acid 6.0 Calcium 9.1 Total Bilirubin 0.5 AST 16 ALT 26 Alkaline Phosphatase 136 H Total Protein 6.2 L Albumin 3.4 L Urine Color Urine Appearance Urine pH Ur Specific [place] Urine Protein Urine Glucose (UA) Urine Ketones Urine Blood Urine Nitrite Ur Leukocyte Esterase Urine WBC (Auto) Urine RBC (Auto) Blood Type O POSITIVE Antibody Screen NEGATIVE Transfer Plan - Disposition Transfer Plan: pt d/c home undelivered and in stable condition start procardia xl - Time Spent with Patient Time spent with patient: Less than 30 Minutes Qualifiers PATEINT BEING DISCHARGED WITH ANY OF THE FOLLOWING DIAGNOSIS?: No
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
--- NOTE | 2016-12-16 18:02 | L&D Current Admission ---
Current Admit Datetime Report Generated by CPN: 12/16/2016 18:00 ADMISSION INFORMATION Current Admit Date/Time: 12/15/2016 21:17 (12/15/2016 21:17:Mary Lou Garcia RN) Reason for Admission: Observation (12/15/2016 21:17:Mary Lou Garcia RN) Chief Complaint: Other (12/15/2016 21:17:Mary Lou Garcia RN) Medications During : Labetolol; Vitamin; Nifedipine (Procardia) (12/15/2016 21:17:Mary Lou Garcia RN) EGA per Dates: 30.5 (12/15/2016 21:17:QS system process) Admitted From: Office (12/15/2016 21:17:Mary Lou Garcia RN) Reason for Induction: Not Applicable (12/15/2016 21:17:Mary Lou Garcia RN) Records Available: Yes (12/15/2016 21:17:Mary Lou Garcia RN) General Admission Information: Reviewed; Updated; Confirmed (12/15/2016:17:Mary Lou Garcia RN) General Admission Reviewed By: Phyllis Garcia RN (12/15/2016 21:17:Mary Lou Garcia RN) BELONGINGS/ADVANCED DIRECTIVES Other Belongings: See [facility] belongings form (12/15/2016 21:17:Mary Lou Garcia RN) Advance Direct for Healthcare: No, and Wants No Information (12/15/2016 21:17:Mary Lou Garcia RN) Durable Power of Continuity Coordinator: No (12/15/2016 21:17:Mary Lou Garcia RN) Living Will: No (12/15/2016 21:17:Mary Lou Garcia RN) Organ Donor: Yes (12/15/2016 21:17:Mary Lou Garcia RN) Pt Rights Information Given: Yes (12/15/2016 21:17:Mary Lou Garcia RN) Pt Understands Pt Rights: Yes (12/15/2016 21:17:Mary Lou Garcia RN) LEARNING ASSESSMENT Knowledge Level: Understands L_D Process (12/15/2016 21:17:Mary Lou Garcia RN) Barriers to Learning: Emotional State (12/15/2016 21:17:Mary Lou Garcia RN) Learning Readiness: Motivated (12/15/2016 21:17:Mary Lou Garcia RN) Learns Best By: 1 to 1 Instruction (12/15/2016 21:17:Mary Lou Garcia RN) Learning Needs: Labor and Delivery Process; Pain Management; Symptoms to Report; Treatment Plan; Medication; Diagnosis; Nutrition; Equipment; Infant Care; Community Resources (12/15/2016 21:17:Mary Lou Garcia RN) DOMESTIC VIOLANCE SCREENING Reason Unable to Complete Screen: No Opportunity to Talk Privately (12/15/2016 21:17:Mary Lou Garcia RN) NUTRITIONAL/FUNCTIONAL SCREENING Problem with Appetite >5 Days: No (12/15/2016 21:17:Mary Lou Garcia RN) Chew/Swallow Difficulties: No (12/15/2016 21:17:Mary Lou Garcia RN) Inappropriate Wt Gain/Loss: No (12/15/2016 21:17:Mary Lou Garcia RN) Presence Skin Breakdown/Ulcer: No (12/15/2016 21:17:Mary Lou Garcia RN) Special Diet: No (12/15/2016 21:17:Mary Lou Garcia RN) Pt Requests Police Sergeant Precinct Visit: No (12/15/2016 21:17:Mary Lou Garcia RN) Hx of Any of the Following?: N/A (12/15/2016 21:17:Mary Lou Garcia RN) New Diagnosis of: N/A (12/15/2016 21:17:Mary Lou Garcia RN) Requires Assist w/Ambulation: No (12/15/2016 21:17:Mary Lou Garcia RN) Uses Assist Device to Ambulate: No (12/15/2016 21:17:Mary Lou Garcia RN) Pt Requires Help w/ADL's: No (12/15/2016 21:17:Mary Lou Garcia RN)
--- NOTE | 2016-12-16 20:01 | L&D Flow Sheet ---
LD Flowsheet Datetime Report Generated by CPN: 12/16/2016 20:00 Datetime: 12/16/2016 14:30 IV/Blood Work: d/c bandaid placed (Mariya Camp, RNC) Datetime: 12/16/2016 14:29 Steroids: Celestone 12mg IM - Dose 2 (Annotations: right hip) (Mariya Camp, RNC) Datetime: 12/16/2016 13:58 Medications: 400 mg Labetalol PO given per order (Dianelys Broman, RN) Datetime: 12/16/2016 13:51 NBP Sys/Dyana/Mean (mmHg): 156 (QS system process) : 88 (QS system process) : 116 (QS system process) Pulse: 95 (QS system process) LaborFlag: Antepartum (QS system process) Datetime: 12/16/2016 13:31 NBP Sys/Dyana/Mean (mmHg): 141 (QS system process) : 91 (QS system process) : 111 (QS system process) Pulse: 99 (QS system process) LaborFlag: Antepartum (QS system process) Datetime: 12/16/2016 13:30 Patient Position/Activity: Semi-Fowlers (Dianelys Broman, RN) Datetime: 12/16/2016 11:14 NBP Sys/Dyana/Mean (mmHg): 160 (QS system process) : 93 (QS system process) : 119 (QS system process) Pulse: 92 (QS system process) LaborFlag: Antepartum (QS system process) Datetime: 12/16/2016 10:21 I/O Interventions: Up to BR (Dianelys Broman, RN) Datetime: 12/16/2016 10:18 Communication Comments: Dr. Benites at bedside, ok to change LR to KVO (Dianelys Broman, RN) Datetime: 12/16/2016 10:13 Communication Comments: Dr. Benites at bedside, reviewed FHRs, strips appropriate for gestational age, ok to discontinue monitor at this time (Dianelys Broman, RN) Datetime: 12/16/2016 10:09 NBP Sys/Dyana/Mean (mmHg): 142 (QS system process) : 92 (QS system process) : 113 (QS system process) Pulse: 95 (QS system process) LaborFlag: Antepartum (QS system process) Datetime: 12/16/2016 09:39 NBP Sys/Dyana/Mean (mmHg): 138 (QS system process) : 97 (QS system process) : 114 (QS system process) Pulse: 96 (QS system process) LaborFlag: Antepartum (QS system process) Datetime: 12/16/2016 09:31 Antiemetics/Antacids: Pepcid PO (mg) @ 20 (Dianelys Broman, RN) Datetime: 12/16/2016 09:22 I/O Interventions: Up to BR (Dianelys Broman, RN) Patient Care Comments: pt requesting pepcid at this time (Dianelys Broman, RN) Datetime: 12/16/2016 09:10 NBP Sys/Dyana/Mean (mmHg): 154 (QS system process) : 97 (QS system process) : 120 (QS system process) Pulse: 92 (QS system process) LaborFlag: Antepartum (QS system process) Datetime: 12/16/2016 09:00 Monitor Mode: External (Dianelys Broman, RN) Frequency (min): none (Dianelys Broman, RN) Resting Tone (Palpate): Relaxed (Dianelys Broman, RN) Monitor Mode: External US (Dianelys Broman, RN) FHR Baseline Rate : 125 (Dianelys Broman, RN) Variability: Moderate 6-25 bpm (Dianelys Broman, RN) Accelerations: 15X15 (Dianelys Broman, RN) Decelerations: None (Dianelys Broman, RN) Datetime: 12/16/2016 08:46 NBP Sys/Dyana/Mean (mmHg): 148 (QS system process) : 94 (QS system process) : 116 (QS system process) Pulse: 99 (QS system process) LaborFlag: Antepartum (QS system process) Datetime: 12/16/2016 08:40 NBP Sys/Dyana/Mean (mmHg): 159 (QS system process) : 101 (QS system process) : 123 (QS system process) Pulse: 98 (QS system process) LaborFlag: Antepartum (QS system process) Datetime: 12/16/2016 08:31 Monitor Mode: External (Dianelys Broman, RN) Frequency (min): none (Dianelys Broman, RN) Pattern: Normal: <= 5 Contractions in 10 Minutes (Dianelys Broman, RN) Resting Tone (Palpate): Relaxed (Dianelys Broman, RN) Monitor Mode: External US (Dianelys Broman, RN) FHR Baseline Rate : 135 (Dianelys Broman, RN) Variability: Moderate 6-25 bpm (Dianelys Broman, RN) Accelerations: 15X15 (Dianelys Broman, RN) Decelerations: None (Dianelys Broman, RN) Datetime: 12/16/2016 08:10 NBP Sys/Dyana/Mean (mmHg): 137 (QS system process) : 87 (QS system process) : 106 (QS system process) Pulse: 100 (QS system process) LaborFlag: Antepartum (QS system process) Datetime: 12/16/2016 08:05 Temperature (F): 98.7 (Dianelys Broman, RN) Temperature (C): 37.1 (QS system process) LaborFlag: Antepartum (QS system process) Datetime: 12/16/2016 08:01 Monitor Mode: External (Dianelys Broman, RN) Frequency (min): none (Dianelys Broman, RN) Resting Tone (Palpate): Relaxed (Dianelys Broman, RN) Monitor Mode: External US (Dianelys Broman, RN) FHR Baseline Rate : 135 (Dianelys Broman, RN) Variability: Moderate 6-25 bpm (Dianelys Broman, RN) Accelerations: 15X15 (Dianelys Broman, RN) Decelerations: None (Dianelys Broman, RN)
== END 2016-12-16 14:49 | disposition home or self-care (01) ==
LOC: LC 17:20 → LR 20:46
PROVIDERS: ADMIT Student in an Organized Health Care Education/Training Program; ATTEND Student in an Organized Health Care Education/Training Program
DX: O16.3 Unspecified maternal hypertension, third trimester (principal); Z3A.30 30 weeks gestation of pregnancy
CPT/HCPCS: 86900; 86901; 36415 ×2; 86850; 83615 ×2; 84550 ×2; 85025 ×2; 80053 ×2; 81001; 80307; G0378 ×2; G0379; J0360; J0702

== ENCOUNTER 2016-12-19 11:27 | Outpatient (CLI) | payer BC ==
[2016-12-19 11:59] LABS: APPEARANCE,URINE CLEAR; BILIRUBIN,URINE NEGATIVE (NEGATIVE); GLUCOSE, URINE NEGATIVE (NEGATIVE); KETONES,URINE NEGATIVE (NEGATIVE); LEUKOCYTE ESTERASE,URINE SMALL (NEGATIVE); NITRITE,URINE NEGATIVE (NEGATIVE); PROTEIN,URINE 100 mg/dL (NEGATIVE); URINE SPECIFIC GRAVITY 1.006; UROBILINOGEN,URINE NEGATIVE mg/dL (<2.0)
[2016-12-19 12:16] LABS: ABSOLUTE LYMPHOCYTES (AUTO) 1.9 10^3/uL (0.5-4.7); ABSOLUTE MONOCYTES (AUTO) 1.1 10^3/uL (0.1-1.4); BASOPHILS % (AUTO) 0.4 % (0-2); EOSINOPHILS % (AUTO) 0.2 % (0-6); HEMATOCRIT 32.6 % (36.0-47.0); HEMOGLOBIN 10.8 g/dL (12.0-15.5); HGB HCT DIFFERENCE -0.2; LYMPHOCYTES % (AUTO) 16.9 % (13-45); MEAN CORPUSCULAR HEMOGLOBIN 27.7 pg (27.0-33.4); MEAN CORPUSCULAR HGB CONC 33.3 g/dL (32.0-36.0); MEAN CORPUSCULAR VOLUME 83 fl (80-97); MONOCYTES % (AUTO) 9.8 % (3-13); RED BLOOD COUNT 3.91 10^6/uL (3.72-5.28); RED CELL DISTRIBUTION WIDTH 12.9 % (11.5-14.0); SEGMENTED NEUTROPHILS % (AUTO) 72.7 % (42-78)
[2016-12-19 12:20] LABS: URINE BARBITURATES SCREEN NEGATIVE; URINE METHADONE SCREEN NEGATIVE; URINE OPIATES LOW NEGATIVE; URINE PHENCYCLIDINE SCREEN NEGATIVE
[2016-12-19 12:27] LABS: ALANINE AMINOTRANSFERASE 28 U/L (9-52); ALBUMIN 3.2 g/dL (3.5-5.0); ALKALINE PHOSPHATASE 124 U/L (38-126); ANION GAP 10 (5-19); ASPARTATE AMINO TRANSFERASE 14 U/L (14-36); BILIRUBIN,DIRECT 0.2 mg/dL (0.0-0.4); BILIRUBIN,TOTAL 0.5 mg/dL (0.2-1.3); BLOOD UREA NITROGEN 10 mg/dL (7-20); CALCIUM 8.6 mg/dL (8.4-10.2); CARBON DIOXIDE 22 mmol/L (22-30); CHLORIDE 106 mmol/L (98-107); CREATININE RESULT 0.52 mg/dL (0.52-1.25); GLUCOSE 85 mg/dL (75-110); LDH 528 U/L (313-618); POTASSIUM 3.6 mmol/L (3.6-5.0); SODIUM 138.4 mmol/L (137-145); TOTAL PROTEIN 5.7 g/dL (6.3-8.2)
== END 2016-12-19 13:00 | disposition home or self-care (01) ==
LOC: LC 11:27
PROVIDERS: ATTEND Specialist
DX: O14.93 Unspecified pre-eclampsia, third trimester (principal); Z3A.30 30 weeks gestation of pregnancy
CPT/HCPCS: 36415; 80053; 80307; 81001; 83615; 84550; 85025

== ENCOUNTER 2016-12-22 09:30 | Outpatient (CLI) | payer BC ==
[2016-12-22 10:24] LABS: APPEARANCE,URINE SLIGHTLY-CLOUDY; BILIRUBIN,URINE NEGATIVE (NEGATIVE); GLUCOSE, URINE NEGATIVE (NEGATIVE); KETONES,URINE NEGATIVE (NEGATIVE); LEUKOCYTE ESTERASE,URINE TRACE (NEGATIVE); NITRITE,URINE NEGATIVE (NEGATIVE); PROTEIN,URINE >=500 mg/dL (NEGATIVE); URINE SPECIFIC GRAVITY 1.008; UROBILINOGEN,URINE NEGATIVE mg/dL (<2.0)
[2016-12-22 10:26] LABS: URINE BARBITURATES SCREEN NEGATIVE; URINE METHADONE SCREEN NEGATIVE; URINE PHENCYCLIDINE SCREEN NEGATIVE
[2016-12-22 10:31] LABS: URINE OPIATES LOW UNCONFIRMED POSITIVE
== END 2016-12-22 11:17 | disposition home or self-care (01) ==
LOC: LC 09:30
PROVIDERS: ATTEND Obstetrics & Gynecology
PROC: 4A1HXCZ Monitoring of Products of Conception, Cardiac Rate, External Approach (ICD-10-PCS; principal; 2016-12-22)
DX: O10.913 Unspecified pre-existing hypertension complicating pregnancy, third trimester (principal); Z3A.31 31 weeks gestation of pregnancy
CPT/HCPCS: 80307; 81001

== ENCOUNTER 2016-12-26 10:14 | Outpatient (CLI) | payer BC ==
[2016-12-26 11:02] LABS: APPEARANCE,URINE CLEAR; BILIRUBIN,URINE NEGATIVE (NEGATIVE); GLUCOSE, URINE NEGATIVE (NEGATIVE); KETONES,URINE NEGATIVE (NEGATIVE); LEUKOCYTE ESTERASE,URINE NEGATIVE (NEGATIVE); NITRITE,URINE NEGATIVE (NEGATIVE); PROTEIN,URINE 100 mg/dL (NEGATIVE); URINE SPECIFIC GRAVITY 1.006; UROBILINOGEN,URINE NEGATIVE mg/dL (<2.0)
[2016-12-26 11:05] LABS: ABSOLUTE LYMPHOCYTES (AUTO) 1.2 10^3/uL (0.5-4.7); ABSOLUTE MONOCYTES (AUTO) 0.6 10^3/uL (0.1-1.4); ABSOLUTE NEUT (AUTO) 7.1 10^3/uL (1.7-8.2); BASOPHILS % (AUTO) 0.5 % (0-2); EOSINOPHILS % (AUTO) 0.3 % (0-6); HEMATOCRIT 34.8 % (36.0-47.0); HEMOGLOBIN 11.7 g/dL (12.0-15.5); HGB HCT DIFFERENCE 0.3; LYMPHOCYTES % (AUTO) 13.4 % (13-45); MEAN CORPUSCULAR HEMOGLOBIN 27.8 pg (27.0-33.4); MEAN CORPUSCULAR HGB CONC 33.6 g/dL (32.0-36.0); MEAN CORPUSCULAR VOLUME 83 fl (80-97); MONOCYTES % (AUTO) 6.8 % (3-13); RED CELL DISTRIBUTION WIDTH 12.8 % (11.5-14.0)
[2016-12-26 11:22] LABS: URINE BARBITURATES SCREEN NEGATIVE; URINE METHADONE SCREEN NEGATIVE; URINE OPIATES LOW NEGATIVE; URINE PHENCYCLIDINE SCREEN NEGATIVE
[2016-12-26 11:24] LABS: ALANINE AMINOTRANSFERASE 17 U/L (9-52); ALBUMIN 3.2 g/dL (3.5-5.0); ALKALINE PHOSPHATASE 153 U/L (38-126); ANION GAP 10 (5-19); ASPARTATE AMINO TRANSFERASE 15 U/L (14-36); BILIRUBIN,DIRECT 0.2 mg/dL (0.0-0.4); BILIRUBIN,TOTAL 0.5 mg/dL (0.2-1.3); BLOOD UREA NITROGEN 9 mg/dL (7-20); CALCIUM 8.9 mg/dL (8.4-10.2); CARBON DIOXIDE 21 mmol/L (22-30); CHLORIDE 107 mmol/L (98-107); CREATININE RESULT 0.57 mg/dL (0.52-1.25); GLUCOSE 106 mg/dL (75-110); LDH 551 U/L (313-618); POTASSIUM 4.2 mmol/L (3.6-5.0); SODIUM 137.8 mmol/L (137-145); TOTAL PROTEIN 6.3 g/dL (6.3-8.2); URIC ACID 5.5 mg/dL (2.5-6.2)
== END 2016-12-26 12:51 | disposition home or self-care (01) ==
LOC: LC 10:14
PROVIDERS: ATTEND Student in an Organized Health Care Education/Training Program
PROC: 4A1HXCZ Monitoring of Products of Conception, Cardiac Rate, External Approach (ICD-10-PCS; principal; 2016-12-26)
DX: O16.3 Unspecified maternal hypertension, third trimester (principal); Z3A.32 32 weeks gestation of pregnancy
CPT/HCPCS: 36415; 59025; 80053; 80307; 81001; 83615; 84550; 85025

== ENCOUNTER 2016-12-29 12:26 | Outpatient (CLI) | payer BC ==
[2016-12-29 13:14] LABS: APPEARANCE,URINE CLEAR; BILIRUBIN,URINE NEGATIVE (NEGATIVE); GLUCOSE, URINE NEGATIVE (NEGATIVE); KETONES,URINE NEGATIVE (NEGATIVE); LEUKOCYTE ESTERASE,URINE NEGATIVE (NEGATIVE); NITRITE,URINE NEGATIVE (NEGATIVE); PROTEIN,URINE 100 mg/dL (NEGATIVE); URINE SPECIFIC GRAVITY 1.004; UROBILINOGEN,URINE NEGATIVE mg/dL (<2.0)
[2016-12-29 13:31] LABS: URINE METHADONE SCREEN NEGATIVE; URINE OPIATES LOW NEGATIVE; URINE PHENCYCLIDINE SCREEN NEGATIVE
[2016-12-29 13:34] LABS: URINE BARBITURATES SCREEN NEGATIVE
[2016-12-29 13:43] LABS: URINE CREATININE 22.8 mg/dL (16-327); URINE PROTEIN 177.3 mg/dL (<12)
[2016-12-29 13:53] LABS: ABSOLUTE LYMPHOCYTES (AUTO) 1.2 10^3/uL (0.5-4.7); ABSOLUTE MONOCYTES (AUTO) 0.6 10^3/uL (0.1-1.4); ABSOLUTE NEUT (AUTO) 6.9 10^3/uL (1.7-8.2); BASOPHILS % (AUTO) 0.6 % (0-2); EOSINOPHILS % (AUTO) 0.1 % (0-6); HEMATOCRIT 33.2 % (36.0-47.0); HEMOGLOBIN 11.1 g/dL (12.0-15.5); HGB HCT DIFFERENCE 0.1; LYMPHOCYTES % (AUTO) 13.9 % (13-45); MEAN CORPUSCULAR HEMOGLOBIN 27.9 pg (27.0-33.4); MEAN CORPUSCULAR HGB CONC 33.4 g/dL (32.0-36.0); MEAN CORPUSCULAR VOLUME 84 fl (80-97); MONOCYTES % (AUTO) 6.7 % (3-13); RED BLOOD COUNT 3.97 10^6/uL (3.72-5.28); RED CELL DISTRIBUTION WIDTH 13.4 % (11.5-14.0); SEGMENTED NEUTROPHILS % (AUTO) 78.7 % (42-78); WHITE BLOOD COUNT 8.8 10^3/uL (4.0-10.5)
[2016-12-29 14:12] LABS: ALANINE AMINOTRANSFERASE 21 U/L (9-52); ALKALINE PHOSPHATASE 160 U/L (38-126); ANION GAP 11 (5-19); ASPARTATE AMINO TRANSFERASE 16 U/L (14-36); BILIRUBIN,DIRECT 0.3 mg/dL (0.0-0.4); BILIRUBIN,TOTAL 0.5 mg/dL (0.2-1.3); BLOOD UREA NITROGEN 10 mg/dL (7-20); CALCIUM 8.7 mg/dL (8.4-10.2); CARBON DIOXIDE 20 mmol/L (22-30); CHLORIDE 108 mmol/L (98-107); CREATININE RESULT 0.58 mg/dL (0.52-1.25); GLUCOSE 121 mg/dL (75-110); LDH 559 U/L (313-618); POTASSIUM 3.7 mmol/L (3.6-5.0); SODIUM 138.6 mmol/L (137-145); TOTAL PROTEIN 5.6 g/dL (6.3-8.2); URIC ACID 6.1 mg/dL (2.5-6.2)
== END 2016-12-29 14:22 | disposition home or self-care (01) ==
LOC: LC 12:26
PROVIDERS: ATTEND Obstetrics & Gynecology
PROC: 4A1HXCZ Monitoring of Products of Conception, Cardiac Rate, External Approach (ICD-10-PCS; principal; 2016-12-29)
DX: O10.913 Unspecified pre-existing hypertension complicating pregnancy, third trimester (principal); Z3A.32 32 weeks gestation of pregnancy
CPT/HCPCS: 36415; 80053; 80307; 81001; 82570; 83615; 84156; 84550; 85025

== ENCOUNTER 2017-01-02 14:47 | Outpatient (CLI) | payer BC ==
[2017-01-02 15:37] LABS: APPEARANCE,URINE CLEAR; BILIRUBIN,URINE NEGATIVE (NEGATIVE); GLUCOSE, URINE NEGATIVE (NEGATIVE); KETONES,URINE NEGATIVE (NEGATIVE); LEUKOCYTE ESTERASE,URINE TRACE (NEGATIVE); NITRITE,URINE NEGATIVE (NEGATIVE); PROTEIN,URINE >=500 mg/dL (NEGATIVE); URINE SPECIFIC GRAVITY 1.004; UROBILINOGEN,URINE NEGATIVE mg/dL (<2.0)
[2017-01-02 15:39] LABS: ABSOLUTE LYMPHOCYTES (AUTO) 1.4 10^3/uL (0.5-4.7); ABSOLUTE MONOCYTES (AUTO) 0.5 10^3/uL (0.1-1.4); ABSOLUTE NEUT (AUTO) 6.1 10^3/uL (1.7-8.2); BASOPHILS % (AUTO) 0.5 % (0-2); EOSINOPHILS % (AUTO) 0.3 % (0-6); HEMATOCRIT 34.7 % (36.0-47.0); HEMOGLOBIN 11.7 g/dL (12.0-15.5); HGB HCT DIFFERENCE 0.4; LYMPHOCYTES % (AUTO) 17.4 % (13-45); MEAN CORPUSCULAR HEMOGLOBIN 27.8 pg (27.0-33.4); MEAN CORPUSCULAR HGB CONC 33.6 g/dL (32.0-36.0); MEAN CORPUSCULAR VOLUME 83 fl (80-97); MONOCYTES % (AUTO) 6.3 % (3-13); RED BLOOD COUNT 4.19 10^6/uL (3.72-5.28); RED CELL DISTRIBUTION WIDTH 13.6 % (11.5-14.0); SEGMENTED NEUTROPHILS % (AUTO) 75.5 % (42-78); WHITE BLOOD COUNT 8.1 10^3/uL (4.0-10.5)
[2017-01-02 15:51] LABS: URINE BARBITURATES SCREEN NEGATIVE; URINE METHADONE SCREEN NEGATIVE; URINE OPIATES LOW NEGATIVE; URINE PHENCYCLIDINE SCREEN NEGATIVE
[2017-01-02 16:03] LABS: ALANINE AMINOTRANSFERASE 29 U/L (9-52); ALBUMIN 3.1 g/dL (3.5-5.0); ALKALINE PHOSPHATASE 187 U/L (38-126); ANION GAP 10 (5-19); ASPARTATE AMINO TRANSFERASE 21 U/L (14-36); BILIRUBIN,DIRECT 0.2 mg/dL (0.0-0.4); BILIRUBIN,TOTAL 0.5 mg/dL (0.2-1.3); BLOOD UREA NITROGEN 9 mg/dL (7-20); CALCIUM 8.9 mg/dL (8.4-10.2); CARBON DIOXIDE 21 mmol/L (22-30); CHLORIDE 106 mmol/L (98-107); CREATININE RESULT 0.64 mg/dL (0.52-1.25); GLUCOSE 90 mg/dL (75-110); LDH 643 U/L (313-618); POTASSIUM 4.5 mmol/L (3.6-5.0); SODIUM 137.4 mmol/L (137-145); TOTAL PROTEIN 5.8 g/dL (6.3-8.2); URIC ACID 6.2 mg/dL (2.5-6.2)
[2017-01-02 16:04] LABS: URINE CREATININE 42.9 mg/dL (16-327)
[2017-01-02 16:13] LABS: URINE PROTEIN 385.9 mg/dL (<12)
== END 2017-01-02 17:53 | disposition home or self-care (01) ==
LOC: LC 14:47
PROVIDERS: ATTEND Obstetrics & Gynecology
DX: Z34.83 Encounter for supervision of other normal pregnancy, third trimester (principal); Z3A.33 33 weeks gestation of pregnancy
CPT/HCPCS: 36415; 59025; 80053; 80307; 81001; 82570; 83615; 84156; 84550; 85025

== ENCOUNTER 2017-01-06 10:09 | Outpatient (CLI) | payer BC ==
--- NOTE | 2017-01-06 10:18 | Non Stress Test Report ---
Non Stress Test Datetime Report Generated by CPN: 01/06/2017 10:18 DEMOGRAPHIC EGA NST: 33.2 EGA NST: 32.2 INDICATION Indication for Study: Other Indication for Study: Ordered by Provider Indication for Study (NST) Other: pih work up VITAL SIGNS Temperature - NST: 98.8 MONITORING Monitor Explained: Monitor Explained; Test Explained; Patient Verbalized Understanding Monitor Explained: Monitor Explained; Test Explained; Patient Verbalized Understanding Time on Monitor: 01/02/2017 15:00 Time on Monitor: 12/26/2016 10:35 Time off Monitor: 01/02/2017 15:31 NST Duration: 31 NST INTERVENTIONS NST Interventions: PO Hydration; Reposition Patient NST Interventions: PO Hydration; Reposition Patient NST Interventions: None Physician Notified NST: Dr. Neal Physician Notified NST: Dr. Mueller BABY A: [id number] BABY A Movement : Present Movement : Present Contraction Frequency : 0 Contraction Frequency : none FHR Baseline : 135 FHR Baseline : 135 Accelerations : 15X15 Accelerations : 15X15 Decelerations : None Decelerations : None Variability : Moderate 6-25bpm Variability : Moderate 6-25bpm NST Review: Meets Criteria for Reactive NST NST Review: Meets Criteria for Reactive NST NST Review and Verified By : Kristina Neal RN NST Review and Verified By : KEON AUSTINT Results: Reactive NST Results: Reactive NST REPORT Report Trigger: Send Report
[2017-01-06 11:17] LABS: ABSOLUTE LYMPHOCYTES (AUTO) 1.2 10^3/uL (0.5-4.7); ABSOLUTE MONOCYTES (AUTO) 0.4 10^3/uL (0.1-1.4); ABSOLUTE NEUT (AUTO) 6.8 10^3/uL (1.7-8.2); BASOPHILS % (AUTO) 0.4 % (0-2); EOSINOPHILS % (AUTO) 0.2 % (0-6); HEMATOCRIT 33.9 % (36.0-47.0); HEMOGLOBIN 11.3 g/dL (12.0-15.5); LYMPHOCYTES % (AUTO) 14.4 % (13-45); MEAN CORPUSCULAR HEMOGLOBIN 27.8 pg (27.0-33.4); MEAN CORPUSCULAR HGB CONC 33.2 g/dL (32.0-36.0); MEAN CORPUSCULAR VOLUME 84 fl (80-97); MONOCYTES % (AUTO) 5.1 % (3-13); RED BLOOD COUNT 4.05 10^6/uL (3.72-5.28); RED CELL DISTRIBUTION WIDTH 14.2 % (11.5-14.0); SEGMENTED NEUTROPHILS % (AUTO) 79.9 % (42-78); WHITE BLOOD COUNT 8.5 10^3/uL (4.0-10.5)
[2017-01-06 11:32] LABS: ALANINE AMINOTRANSFERASE 23 U/L (9-52); ALBUMIN 2.8 g/dL (3.5-5.0); ALKALINE PHOSPHATASE 172 U/L (38-126); ANION GAP 8 (5-19); ASPARTATE AMINO TRANSFERASE 22 U/L (14-36); BILIRUBIN,DIRECT 0.3 mg/dL (0.0-0.4); BILIRUBIN,TOTAL 0.5 mg/dL (0.2-1.3); BLOOD UREA NITROGEN 11 mg/dL (7-20); CALCIUM 8.6 mg/dL (8.4-10.2); CARBON DIOXIDE 21 mmol/L (22-30); CHLORIDE 105 mmol/L (98-107); CREATININE RESULT 0.66 mg/dL (0.52-1.25); GLUCOSE 94 mg/dL (75-110); LDH 689 U/L (313-618); SODIUM 134.2 mmol/L (137-145); TOTAL PROTEIN 5.5 g/dL (6.3-8.2); URIC ACID 6.8 mg/dL (2.5-6.2)
--- NOTE | 2017-01-11 16:36 | L&D Progress Notes ---
PROGRESS NOTES Datetime Report Generated by CPN: 01/11/2017 12:26 PROGRESS NOTE Impression: Gest. HTN/PreEclampsia/Eclampsia Plan: Transfer Informed Consent Obtained: Vaginal Delivery; Section Delivery; Risks, Benefits and Alternatives Discussed Comment: Pt with low platelets at 77K which is new for her, also with elevated lhd at 966. Cr baseline was 0.45 last week but now 0.77. Transaminases nl. Starting magnesium seizure prophylaxis and contacted [facility] for transfer due to no platelet availability here hemolysis/ low platelets. VAGINAL EXAM Dilatation: 0 MEMBRANES Membranes: Intact FETUS A FHR Category: Category I Presentation: Vertex Presentation: Vertex SIGNATURE SIGNATURE: [id number] SIGNATURE: [id number] Signature: with User ID: [email or web address]
--- NOTE | 2017-01-11 16:36 | L&D Progress Notes ---
PROGRESS NOTES Datetime Report Generated by CPN: 01/11/2017 12:45 PROGRESS NOTE Impression: Gest. HTN/PreEclampsia/Eclampsia Impression Other: hemolysis, low platelets Plan: Transfer Informed Consent Obtained: Section Delivery Comment: Dr [facility]Dexter at [facility] accepts pt in transfer due to chtn with superimposed severe preeclampsia, hemolysis and low plts. Pt also with GDMA1. Interested in primary for delivery. FETUS A FHR Category: Category I FETUS C SIGNATURE: [id number] Signature: with User ID: [email or web address]
== END 2017-01-06 12:00 | disposition home or self-care (01) ==
LOC: LC 10:09
PROVIDERS: ATTEND Obstetrics & Gynecology
PROC: 4A1HXCZ Monitoring of Products of Conception, Cardiac Rate, External Approach (ICD-10-PCS; principal; 2017-01-06)
DX: O11.4 Pre-existing hypertension with pre-eclampsia, complicating childbirth (principal); O99.113 Other diseases of the blood and blood-forming organs and certain disorders involving the immune mechanism complicating pregnancy, third trimester; Z3A.33 33 weeks gestation of pregnancy
CPT/HCPCS: 36415; 80053; 83615; 84550; 85025

== ENCOUNTER → 2017-01-11 | Outpatient (CLI) | payer BC ==
[~2017-01-11] MED LIST: MAGNESIUM SULFATE 4 GM/100 ML RTUPB IV ONE; MAGNESIUM SULFATE 40 GM/1000 ML IV ONE; MAGNESIUM SULFATE IV ONE; ONDANSETRON HCL INJ/PF 4 MG/2 ML SDV ONE; PROCHLORPERAZINE MALEATE 10 MG TABLET ONE; RINGERS SOLUTION,LACTATED 1,000 ML IV PRN
[2017-01-12 10:01] LABS: ABSOLUTE LYMPHOCYTES (AUTO) 1.1 10^3/uL (0.5-4.7); ABSOLUTE MONOCYTES (AUTO) 0.5 10^3/uL (0.1-1.4); ABSOLUTE NEUT (AUTO) 6.6 10^3/uL (1.7-8.2); BASOPHILS % (AUTO) 0.5 % (0-2); EOSINOPHILS % (AUTO) 0.4 % (0-6); HEMATOCRIT 34.9 % (36.0-47.0); HEMOGLOBIN 11.5 g/dL (12.0-15.5); HGB HCT DIFFERENCE -0.4; LYMPHOCYTES % (AUTO) 13.5 % (13-45); MEAN CORPUSCULAR HEMOGLOBIN 27.7 pg (27.0-33.4); MEAN CORPUSCULAR HGB CONC 32.9 g/dL (32.0-36.0); MEAN CORPUSCULAR VOLUME 84 fl (80-97); MONOCYTES % (AUTO) 5.9 % (3-13); RED BLOOD COUNT 4.15 10^6/uL (3.72-5.28); RED CELL DISTRIBUTION WIDTH 14.8 % (11.5-14.0); SEGMENTED NEUTROPHILS % (AUTO) 79.7 % (42-78); WHITE BLOOD COUNT 8.3 10^3/uL (4.0-10.5)
[2017-01-12 12:06] LABS: URINE PHENCYCLIDINE SCREEN NEGATIVE
[2017-01-12 12:07] LABS: URINE BARBITURATES SCREEN NEGATIVE; URINE METHADONE SCREEN NEGATIVE; URINE OPIATES LOW NEGATIVE
[2017-01-12 13:34] LABS: CALCIUM 7.8 mg/dL (8.4-10.2)
[2017-01-12 13:35] LABS: ANION GAP 5 (5-19); BLOOD UREA NITROGEN 13 mg/dL (7-20); CARBON DIOXIDE 22 mmol/L (22-30); CHLORIDE 107 mmol/L (98-107); CREATININE RESULT 0.77 mg/dL (0.52-1.25); GLUCOSE 103 mg/dL (75-110); POTASSIUM 4.3 mmol/L (3.6-5.0); SODIUM 134.3 mmol/L (137-145)
[2017-01-12 13:36] LABS: ALANINE AMINOTRANSFERASE 29 U/L (9-52); ALBUMIN 2.5 g/dL (3.5-5.0); ALKALINE PHOSPHATASE 164 U/L (38-126); ASPARTATE AMINO TRANSFERASE 32 U/L (14-36); BILIRUBIN,DIRECT 0.2 mg/dL (0.0-0.4); BILIRUBIN,TOTAL 0.4 mg/dL (0.2-1.3); LDH 966 U/L (313-618); TOTAL PROTEIN 5.1 g/dL (6.3-8.2); URIC ACID 7.1 mg/dL (2.5-6.2)
[2017-01-12 14:11] LABS: APPEARANCE,URINE CLOUDY; BILIRUBIN,URINE NEGATIVE (NEGATIVE); GLUCOSE, URINE NEGATIVE (NEGATIVE); KETONES,URINE NEGATIVE (NEGATIVE); LEUKOCYTE ESTERASE,URINE NEGATIVE (NEGATIVE); NITRITE,URINE NEGATIVE (NEGATIVE); PROTEIN,URINE >=500 mg/dL (NEGATIVE); URINE SPECIFIC GRAVITY 1.024; UROBILINOGEN,URINE NEGATIVE mg/dL (<2.0)
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
== END ==
LOC: LC 09:48
PROVIDERS: ATTEND Obstetrics & Gynecology
PROC: 4A1HXCZ Monitoring of Products of Conception, Cardiac Rate, External Approach (ICD-10-PCS; principal; 2017-01-11)
DX: Z34.93 Encounter for supervision of normal pregnancy, unspecified, third trimester (principal); Z36 Encounter for antenatal screening of mother; Z3A.34 34 weeks gestation of pregnancy
CPT/HCPCS: 59025; 94760; 86900; 86901; 36415; 86850; 83615; 84550; 85025; 86592; 80053; 81001; 80307; J3475 ×2; S0183; J2405